=== PATIENT | female | born 1960 | race Caucasian/White ===

== ENCOUNTER 2016-10-14 04:43 | Emergency (ER) | payer MEDICARE ==
[~2016-10-14] VITALS: Ht 157.5 cm; Wt 48.2 kg
[~2016-10-14 04:43] MED LIST: ACCOLATE 220 MG/1 TA PO; ACETAMINOPHEN W1 TA6 PO; ALPRAZOLAM PO; ALPRAZOLAM0.25 MG PO; ANTIBIOTIC; ANTIVERT 25MG25 MG PO; ANUCORT HC25 M1 RC; ASTELIN137 MCG/AC NS; ATARAX 25MG25 MG/TAB PO; ATIVAN 0.50.5 MG/TAB PO; ATIVAN 1MG T1 MG/TAB PO; ATOXIMETIN-B1 CAP PO; ATROVENT INHALE14 GM IH; BENADRYL25 M1 PO; CATAPRES 0.1MG0.1 MG PO; CEPHALEXIN500 M1 PO; CEPHULAC10 GM/15 M PO; CLEOCIN HCL300 MG PO; COMPAZINE 5MG TA5 MG PO; CRESTOR20 MG PO; DAZIDOX10 MG PO; DESYREL 50MG50 MG PO; DEXTROMETHORPHA PO; DILAUDID 2MG TAB2 MG PO; DILAUDID 4MG TAB4 MG PO; DITROPAN XL10 MG PO; DOXYCYCLINE 10100 MG PO; DULCOLAX5 MG PO; FENTANYL 50MCG TD; FLEXERIL 1010 MG/TAB PO; FLONASE0.05 MG/AC NS; HABITROL21 MG/24 H TD; IBUPROFEN PO; IRON90 MG PO; LEUKINE; LEXAPRO20 MG PO; LIDODERM5% TP; LORTAB 10/500 51 TAB; LORTAB 5/500 501 TAB PO; LORTAB 7.5/5001 TAB PO; LOTRIMIN15 GM TP; LOTRISONE CREAM15 GM TP; METHADONE H5 MG/5 M1 PO; MINERAL OIL TP; MIRALAX 17GM PK1 PKT PO; MIRALAX PA17 GM/Dose PO; MIRALAX17 GM/DOSE PO; MOBIC 7.5MG7.5 MG PO; MOBIC15 MG PO; MS CONTIN15 MG PO; MS CONTIN30 MG PO; MULTIVITAMIN FO1 CAP PO; MYCOSTATIN100000 U/G TP; NAUSEA MED PO; NEURONTIN300 MG PO; NEXIUM 20MG CAP20 MG PO; NEXIUM 20MG20 MG PO; NEXIUM 40MG40 MG PO; NEXIUM10 MG/Pack PO; NEXIUM40 MG PO; NIZORAL CREAM15 GM TP; NO HOME MEDICATIONS; NORCO 325 MG-51 TAB PO; NORCO 325 MG-7.1 TAB PO; NYSTATIN POWDER30 GM TOP; OMEPRAZOLE MAGN20 MG PO; PERCOCET 325 MG1 TA2 PO; PERCOCET 325 MG1 TAB PO; PHENERGAN 25 TA25 MG; PHENERGAN 25 TA25 MG PO; POLYETHYLENE GL1 OI1; PREDNISONE20 MG PO; PREMARIN 0.60.625 M1 PO; PREVACID30 MG PO; PRILOSEC 20MG20 MG PO; PRILOSEC20 MG PO; PROAIR HFA0.09 MG/AC IH; PYRIDIUM200 M1 PO; RESTORIL 1515 MG/CAP PO; RESTORIL15 MG PO; ROXICODONE15 MG PO; RT SPIRIVA18 MCG IH; SEROQUEL50 MG PO; SILVADENE CREAM1 TU TP; THEO-24300 MG PO; TRIAMC 0.1 454 TOP; ULTRAM 50MG TAB50 MG PO; ULTRAM50 MG PO; VALIUM 10MG10 MG/TAB PO; VALIUM 2MG T2 MG/TAB PO; VALIUM 5MG T5 MG/TAB PO; VENTOLIN0.09 MG IH; VICODIN 5/5001 UDTAB PO; XANAX .25M0.25 MG/TA PO; XANAX 0.5MG0.5 MG PO; XANAX0.25 MG PO; ZITHROMAX Z PA250 MG PO; ZOFRAN 4MG T4 MG/TAB PO; ZOFRAN8 MG PO; [UNRECOGNIZED DRUG - CODE] PO; [UNRECOGNIZED DRUG - OTHER] PO; proair
[2016-10-14 05:08] VITALS: BP 102/68; TEMP 97.7
[2016-10-14] MEDS ORDERED: FENTANYL 25 MCG TD (05:13)
[2016-10-14] MEDS ORDERED: FLEXERIL5 MG PO (05:14)
[2016-10-14] MEDS ORDERED: LYRICA 50MG CAP50 MG PO (05:14)
[2016-10-14 06:35] VITALS: PULSE 85
== END 2016-10-14 07:18 | disposition home or self-care (01) ==
LOC: COL.ER 04:43 → EDBD 05:16 → COL.ER 07:18
DX: K94.19 Other complications of enterostomy (principal); G89.29 Other chronic pain; Z85.038 Personal history of other malignant neoplasm of large intestine

== ENCOUNTER 2016-10-30 03:39 | Emergency (ER) | payer MEDICARE ==
[~2016-10-30] VITALS: Ht 160 cm; Wt 47.7 kg
[~2016-10-30 03:39] MED LIST changes: +FENTANYL 25 MCG TD; +FLEXERIL5 MG PO; +LYRICA 50MG CAP50 MG PO
[2016-10-30 03:44] VITALS: TEMP 97.8
[2016-10-30] MEDS ORDERED: CLEOCIN HC150 MG/CAP PO (04:13)
[2016-10-30 04:35] VITALS: BP 147/82; PULSE 84
== END 2016-10-30 04:37 | disposition home or self-care (01) ==
LOC: COL.ER 03:39 → EDBD 03:54 → COL.ER 04:37
DX: K08.89 Other specified disorders of teeth and supporting structures (principal); Z43.3 Encounter for attention to colostomy; Z46.59 Encounter for fitting and adjustment of other gastrointestinal appliance and device; F17.210 Nicotine dependence, cigarettes, uncomplicated

== ENCOUNTER 2016-11-05 14:37 | Emergency (ER) | payer MEDICARE ==
[~2016-11-05] VITALS: Ht 162.6 cm; Wt 48.2 kg
[~2016-11-05 14:37] MED LIST changes: +CLEOCIN HC150 MG/CAP PO
[2016-11-05 16:05] VITALS: BP 117/72; PULSE 85; TEMP 97
== END 2016-11-05 16:10 | disposition home or self-care (01) ==
LOC: COL.ER 14:37 → EDBD 14:48 → COL.ER 14:48
DX: J10.1 Influenza due to other identified influenza virus with other respiratory manifestations (principal); F17.210 Nicotine dependence, cigarettes, uncomplicated

== ENCOUNTER 2016-11-23 22:02 | Emergency (ER) | payer MEDICARE ==
[~2016-11-23] VITALS: Ht 157.5 cm; Wt 49.1 kg
[2016-11-23 22:05] VITALS: BP 125/73; PULSE 92; TEMP 97.9
== END 2016-11-23 23:24 | disposition home or self-care (01) ==
LOC: COL.ER 22:02 → EDBD 22:13 → COL.ER 22:13
DX: Z43.2 Encounter for attention to ileostomy (principal); R10.84 Generalized abdominal pain; R11.2 Nausea with vomiting, unspecified

== ENCOUNTER 2016-12-28 14:03 | Emergency (ER) | payer MEDICARE ==
[~2016-12-28] VITALS: Ht 157.5 cm; Wt 50.5 kg
[2016-12-28 14:11] VITALS: TEMP 98.5
[2016-12-28 15:53] LABS: ADJUSTED CALCIUM 9.2 mg/dL (8.4-10.2); ALBUMIN 4.2 gm/dL (3.5-5.0); BILIRUBIN,TOTAL 1.1 mg/dL (0.0-1.0); CALCIUM 9.4 mg/dL (8.4-10.2); CREATININE, serum 0.86 mg/dL (0.52-1.25); MAGNESIUM 2.3 mg/dL (1.6-2.3); POTASSIUM 4.8 mmol/L (3.4-5.0); TOTAL PROTEIN 7.2 gm/dL (6.4-8.2)
[2016-12-28 16:04] LABS: BASO # 0.1 (0.0-0.2); BASO % 0.7 % (0.0-2.0); EOS # 0.3 (0.0-0.7); EOS % 3.6 % (0-4.0); GRAN # 3.1 (1.4-6.5); GRAN % 44.6 % (42.2-75.2); HEMATOCRIT 41.3 % (37.0-47.0); HEMOGLOBIN 14.2 g/dl (12.5-16.0); LYMPH # 3.1 (1.2-3.4); LYMPH % 44.9 % (20.0-51.0); MEAN CELL VOLUME 96 fl (80.0-100.0); MEAN CORPUSCULAR HEMOGLOBIN 33 pg (27.0-31.0); MEAN CORPUSCULAR HGB CONC 34 g/dl (33.0-37.0); MEAN PLATELET VOLUME 10.9 fl (7.4-10.4); MONO # 0.4 (0.1-0.6); MONO % 5.9 % (1.7-9.3); PLATELET COUNT 155 K/mm3 (130-400); RED BLOOD COUNT 4.31 M/mm3 (4.10-5.30); REDCELL DISTRIBUTION WIDTH-CV 12.4 % (11.5-14.5); WHITE BLOOD COUNT 6.9 K/mm3 (4.8-10.8)
[2016-12-28 17:27] VITALS: BP 104/62; PULSE 71
== END 2016-12-28 17:30 | disposition home or self-care (01) ==
LOC: COL.ER 14:03 → EDBD 14:17 → COL.ER 14:17
PROVIDERS: Emergency Medicine
DX: E86.0 Dehydration (principal); Z43.2 Encounter for attention to ileostomy
CPT/HCPCS: J7030

== ENCOUNTER 2017-01-05 03:51 | Emergency (ER) | payer MEDICARE ==
[~2017-01-05] VITALS: Ht 157.5 cm; Wt 50.0 kg
[2017-01-05 03:57] VITALS: TEMP 97.9
[2017-01-05 05:01] VITALS: BP 131/64; PULSE 94
== END 2017-01-05 05:01 | disposition home or self-care (01) ==
LOC: COL.ER 03:51 → EDBD 04:03 → COL.ER 04:03
DX: Z43.2 Encounter for attention to ileostomy (principal); L24.89 Irritant contact dermatitis due to other agents

== ENCOUNTER 2017-01-12 03:53 | Emergency (ER) | payer MEDICARE ==
[~2017-01-12] VITALS: Ht 157.5 cm; Wt 50.0 kg
[2017-01-12 03:59] VITALS: BP 118/62; PULSE 96; TEMP 97.7
[2017-01-12 05:57] LABS: BASO # 0.1 (0.0-0.2); BASO % 0.8 % (0.0-2.0); EOS # 0.3 (0.0-0.7); EOS % 4.5 % (0-4.0); GRAN # 3.1 (1.4-6.5); GRAN % 47.4 % (42.2-75.2); HEMOGLOBIN 12.7 g/dl (12.5-16.0); LYMPH # 2.6 (1.2-3.4); LYMPH % 38.9 % (20.0-51.0); MEAN CELL VOLUME 97 fl (80.0-100.0); MEAN CORPUSCULAR HEMOGLOBIN 33 pg (27.0-31.0); MEAN CORPUSCULAR HGB CONC 33 g/dl (33.0-37.0); MEAN PLATELET VOLUME 11.3 fl (7.4-10.4); MONO # 0.5 (0.1-0.6); MONO % 7.9 % (1.7-9.3); PLATELET COUNT 148 K/mm3 (130-400); REDCELL DISTRIBUTION WIDTH-CV 12.9 % (11.5-14.5); WHITE BLOOD COUNT 6.6 K/mm3 (4.8-10.8)
[2017-01-12 05:59] LABS: ANION GAP 8 mmol/L (7-16); BLOOD UREA NITROGEN 21 mg/dL (7-17); C-REACTIVE PROTEIN < 0.5 mg/dL (0.0-0.9); CALCIUM 9.4 mg/dL (8.4-10.2); CARBON DIOXIDE 29 mmol/L (22-30); CHLORIDE 102 mmol/L (98-107); CREATININE, serum 0.85 mg/dL (0.52-1.25); GLUCOSE 106 mg/dL (74-106); POTASSIUM 4.6 mmol/L (3.4-5.0); SODIUM 139 mmol/L (137-145)
[2017-01-12] MEDS ORDERED: LEVEMIR SQ (06:10)
== END 2017-01-12 07:02 | disposition home or self-care (01) ==
LOC: COL.ER 03:53 → EDBD 04:06 → COL.ER 07:02
PROVIDERS: Emergency Medicine
DX: Z43.2 Encounter for attention to ileostomy (principal); L24.89 Irritant contact dermatitis due to other agents; Z85.038 Personal history of other malignant neoplasm of large intestine

== ENCOUNTER 2017-01-17 23:03 | Emergency (ER) | payer MEDICARE ==
[~2017-01-17] VITALS: Ht 157.5 cm; Wt 50.5 kg
[~2017-01-17 23:03] MED LIST changes: +LEVEMIR SQ
[2017-01-17 23:07] VITALS: BP 113/67; TEMP 97.5
[2017-01-18 00:22] VITALS: PULSE 89
== END 2017-01-18 00:24 | disposition home or self-care (01) ==
LOC: COL.ER 23:03 → EDBD 23:12 → COL.ER 23:12
DX: Z43.3 Encounter for attention to colostomy (principal); B37.2 Candidiasis of skin and nail; G89.29 Other chronic pain; Z91.19 Patient's noncompliance with other medical treatment and regimen

== ENCOUNTER 2017-01-24 10:24 | Emergency (ER) | payer MEDICARE ==
[~2017-01-24] VITALS: Ht 157.5 cm; Wt 58.2 kg
[2017-01-24 10:36] VITALS: BP 114/71; PULSE 107; TEMP 98.6
== END 2017-01-24 11:21 | disposition home or self-care (01) ==
LOC: COL.ER 10:24 → EDBD 10:47 → COL.ER 10:47
DX: K08.89 Other specified disorders of teeth and supporting structures (principal); F17.210 Nicotine dependence, cigarettes, uncomplicated

== ENCOUNTER 2017-01-28 18:19 | Emergency (ER) | payer MEDICARE ==
[~2017-01-28] VITALS: Ht 167.6 cm; Wt 63.6 kg
[2017-01-28 18:27] VITALS: TEMP 97.5
[2017-01-28] MEDS ORDERED: NORCO 325 MG-51 TAB PO (18:34)
[2017-01-28 19:01] LABS: BASO # 0.1 (0.0-0.2); BASO % 0.7 % (0.0-2.0); EOS # 0.4 (0.0-0.7); EOS % 5.6 % (0-4.0); GRAN % 40.3 % (42.2-75.2); HEMATOCRIT 36.9 % (37.0-47.0); HEMOGLOBIN 12.6 g/dl (12.5-16.0); LYMPH # 3.4 (1.2-3.4); LYMPH % 45.6 % (20.0-51.0); MEAN CELL VOLUME 97 fl (80.0-100.0); MEAN CORPUSCULAR HEMOGLOBIN 33 pg (27.0-31.0); MEAN CORPUSCULAR HGB CONC 34 g/dl (33.0-37.0); MEAN PLATELET VOLUME 10.8 fl (7.4-10.4); MONO # 0.5 (0.1-0.6); MONO % 6.9 % (1.7-9.3); PLATELET COUNT 159 K/mm3 (130-400); RED BLOOD COUNT 3.81 M/mm3 (4.10-5.30); REDCELL DISTRIBUTION WIDTH-CV 12.5 % (11.5-14.5); WHITE BLOOD COUNT 7.5 K/mm3 (4.8-10.8)
[2017-01-28 19:08] LABS: INR 0.9 (0.8-3.0); PROTHROMBIN TIME 10.1 SECONDS (9.7-12.8)
[2017-01-28 19:12] LABS: PH 5 (5-8); SQUAMOUS EPITHELIAL 0-2 /hpf; URINE APPEARANCE Clear; URINE BACTERIA None Seen /hpf; URINE BILIRUBIN Negative (NEGATIVE); URINE BLOOD Negative (NEGATIVE); URINE COLOR Yellow; URINE GLUCOSE Negative (NEGATIVE); URINE KETONE Trace (NEGATIVE); URINE UROBILINOGEN Negative (NEGATIVE); URINE WBC 0-2 /hpf
[2017-01-28 19:15] LABS: ALANINE AMINOTRANSFERASE 30 U/L (9-52); ALBUMIN 3.7 gm/dL (3.5-5.0); ALKALINE PHOSPHATASE 113 U/L (50-136); ANION GAP 9 mmol/L (7-16); BILIRUBIN,TOTAL 0.6 mg/dL (0.0-1.0); BLOOD UREA NITROGEN 19 mg/dL (7-17); C-REACTIVE PROTEIN < 0.5 mg/dL (0.0-0.9); CALCIUM 8.8 mg/dL (8.4-10.2); CARBON DIOXIDE 27 mmol/L (22-30); CHLORIDE 105 mmol/L (98-107); CREATININE, serum 0.94 mg/dL (0.52-1.25); GLUCOSE 97 mg/dL (74-106); SODIUM 141 mmol/L (137-145); TOTAL PROTEIN 6.3 gm/dL (6.4-8.2)
[2017-01-28 19:19] LABS: AMPHETAMINE URINE NEGATIVE; BARBITURATES URINE NEGATIVE; BENZODIAZEPINES URINE POSITIVE; BUPRENORPHINE URINE NEGATIVE; METHADONE URINE NEGATIVE; OPIATES URINE POSITIVE; OXYCODONE URINE NEGATIVE; PHENCYCLIDINE URINE NEGATIVE; PROPOXYPHENE URINE NEGATIVE; THC CANNABINOIDS URINE NEGATIVE
[2017-01-28 22:20] VITALS: BP 118/78; PULSE 78
== END 2017-01-29 03:09 | disposition home or self-care (01) ==
LOC: COL.ER 18:19 → EDBD 18:21 → COL.ER 01-29 03:09
PROVIDERS: Family Medicine
DX: T40.2X1A Poisoning by other opioids, accidental (unintentional), initial encounter (principal); R40.0 Somnolence; F11.920 Opioid use, unspecified with intoxication, uncomplicated; Z93.3 Colostomy status
CPT/HCPCS: J2310

== ENCOUNTER 2017-02-04 08:54 | Emergency (ER) | payer MEDICARE ==
[~2017-02-04] VITALS: Ht 157.5 cm; Wt 63.6 kg
[2017-02-04 08:59] VITALS: BP 160/82; PULSE 84; TEMP 98.2
[2017-02-04] MEDS ORDERED: PERCOCET 325 MG1 TA2 PO (09:04)
[2017-02-04] MEDS ORDERED: FLEXERIL 1010 MG/TAB PO (09:06)
[2017-02-04] MEDS ORDERED: ZOFRAN ODT4 MG PO (09:07)
[2017-02-04] MEDS ORDERED: MOBIC15 MG PO (09:08)
== END 2017-02-04 11:30 | disposition home or self-care (01) ==
LOC: COL.ER 08:54 → EDBD 09:10 → COL.ER 09:10
DX: Z43.2 Encounter for attention to ileostomy (principal); Z46.89 Encounter for fitting and adjustment of other specified devices

== ENCOUNTER 2017-02-04 21:15 | Emergency (ER) | payer MEDICARE ==
[~2017-02-04] VITALS: Ht 157.5 cm; Wt 59.1 kg
[~2017-02-04 21:15] MED LIST changes: +ZOFRAN ODT4 MG PO
[2017-02-04 21:19] VITALS: BP 133/77; PULSE 95; TEMP 98.4
== END 2017-02-04 23:42 | disposition home or self-care (01) ==
LOC: COL.ER 21:15 → EDBD 21:23 → COL.ER 23:42
DX: Z43.3 Encounter for attention to colostomy (principal); Z46.89 Encounter for fitting and adjustment of other specified devices; J44.9 Chronic obstructive pulmonary disease, unspecified; F41.9 Anxiety disorder, unspecified; Z90.5 Acquired absence of kidney; F17.210 Nicotine dependence, cigarettes, uncomplicated

== ENCOUNTER 2017-02-06 00:15 | Emergency (ER) | payer MEDICARE ==
[~2017-02-06] VITALS: Ht 162.6 cm; Wt 81.8 kg
[2017-02-06 00:19] VITALS: TEMP 97.7
[2017-02-06 00:54] LABS: BASO # 0.1 (0.0-0.2); BASO % 0.8 % (0.0-2.0); EOS # 0.4 (0.0-0.7); EOS % 5.2 % (0-4.0); GRAN # 3.3 (1.4-6.5); GRAN % 44.7 % (42.2-75.2); LYMPH % 40.1 % (20.0-51.0); MEAN CELL VOLUME 99 fl (80.0-100.0); MEAN CORPUSCULAR HGB CONC 33 g/dl (33.0-37.0); MEAN PLATELET VOLUME 10.7 fl (7.4-10.4); MONO # 0.7 (0.1-0.6); MONO % 8.7 % (1.7-9.3); PLATELET COUNT 134 K/mm3 (130-400); RED BLOOD COUNT 3.37 M/mm3 (4.10-5.30); REDCELL DISTRIBUTION WIDTH-CV 12.4 % (11.5-14.5); WHITE BLOOD COUNT 7.4 K/mm3 (4.8-10.8)
[2017-02-06 00:55] LABS: HEMATOCRIT 33.4 % (37.0-47.0); MEAN CORPUSCULAR HEMOGLOBIN 33 pg (27.0-31.0)
[2017-02-06 01:05] LABS: ADJUSTED CALCIUM 8.9 mg/dL (8.4-10.2); ALANINE AMINOTRANSFERASE 25 U/L (9-52); ALBUMIN 3.2 gm/dL (3.5-5.0); ALKALINE PHOSPHATASE 92 U/L (50-136); ANION GAP 7 mmol/L (7-16); BILIRUBIN,TOTAL 0.5 mg/dL (0.0-1.0); BLOOD UREA NITROGEN 20 mg/dL (7-17); CALCIUM 8.3 mg/dL (8.4-10.2); CARBON DIOXIDE 29 mmol/L (22-30); CHLORIDE 106 mmol/L (98-107); CREATININE, serum 0.97 mg/dL (0.52-1.25); GLUCOSE 88 mg/dL (74-106); LIPASE 33 U/L (23-300); POTASSIUM 4.3 mmol/L (3.4-5.0); SODIUM 142 mmol/L (137-145); TOTAL PROTEIN 5.6 gm/dL (6.4-8.2)
[2017-02-06 01:07] LABS: ACETAMINOPHEN < 10 ug/mL (10-30); SALICYLATE < 1.0 mg/dL
[2017-02-06 01:33] LABS: AMPHETAMINE URINE NEGATIVE; BARBITURATES URINE NEGATIVE; BENZODIAZEPINES URINE POSITIVE; BUPRENORPHINE URINE NEGATIVE; METHADONE URINE NEGATIVE; OPIATES URINE NEGATIVE; OXYCODONE URINE POSITIVE; PH 5 (5-8); PHENCYCLIDINE URINE NEGATIVE; PROPOXYPHENE URINE NEGATIVE; SQUAMOUS EPITHELIAL 0-2 /hpf; THC CANNABINOIDS URINE NEGATIVE; URINE APPEARANCE Clear; URINE BACTERIA None Seen /hpf; URINE BILIRUBIN Negative (NEGATIVE); URINE BLOOD Negative (NEGATIVE); URINE COLOR Yellow; URINE GLUCOSE Negative (NEGATIVE); URINE KETONE Negative (NEGATIVE); URINE RBC 0-2 /hpf; URINE UROBILINOGEN Negative (NEGATIVE); URINE WBC 0-2 /hpf
[2017-02-06 06:32] VITALS: BP 144/97; PULSE 72
== END 2017-02-06 06:34 | disposition home or self-care (01) ==
LOC: COL.ER 00:15 → EDBD 00:19 → COL.ER 06:34
PROVIDERS: Physician Assistant
DX: T40.2X1A Poisoning by other opioids, accidental (unintentional), initial encounter (principal); R41.82 Altered mental status, unspecified; Y92.099 Unspecified place in other non-institutional residence as the place of occurrence of the external cause; G89.29 Other chronic pain; Z85.038 Personal history of other malignant neoplasm of large intestine; Z43.2 Encounter for attention to ileostomy; Z46.89 Encounter for fitting and adjustment of other specified devices; Z91.19 Patient's noncompliance with other medical treatment and regimen
CPT/HCPCS: J2310; J7030

== ENCOUNTER 2017-02-15 16:38 | Emergency (ER) | payer MEDICARE ==
[~2017-02-15] VITALS: Ht 157.5 cm; Wt 63.6 kg
[2017-02-15 16:51] VITALS: BP 101/64; PULSE 91; TEMP 97.9
== END 2017-02-15 18:02 | disposition home or self-care (01) ==
LOC: COL.ER 16:38 → EDBD 16:49 → COL.ER 16:49
DX: Z43.3 Encounter for attention to colostomy (principal); J44.9 Chronic obstructive pulmonary disease, unspecified; F41.9 Anxiety disorder, unspecified

== ENCOUNTER → 2017-02-16 | Outpatient (REF) ==
[~2017-02-16] MED LIST changes: +LYRICA 150MG C150 MG PO; +VISTARIL 2525 MG/CAP PO
== END ==
LOC: EDBD 18:53 → COL.LAB 18:53
DX: Z01.89 Encounter for other specified special examinations (principal)

== ENCOUNTER 2017-02-27 13:23 | Emergency (ER) | payer MEDICARE ==
[~2017-02-27] VITALS: Ht 157.5 cm; Wt 56.8 kg
[~2017-02-27 13:23] MED LIST changes: -LYRICA 150MG C150 MG PO; -VISTARIL 2525 MG/CAP PO
[2017-02-27 13:34] VITALS: BP 125/85; TEMP 97.7
[2017-02-27 14:01] VITALS: PULSE 87
== END 2017-02-27 14:15 | disposition home or self-care (01) ==
LOC: COL.ER 13:23 → EDBD 13:27 → COL.ER 14:15
DX: J44.9 Chronic obstructive pulmonary disease, unspecified (principal); Z43.2 Encounter for attention to ileostomy; K21.9 Gastro-esophageal reflux disease without esophagitis; M19.90 Unspecified osteoarthritis, unspecified site; F41.9 Anxiety disorder, unspecified; G89.29 Other chronic pain; F17.210 Nicotine dependence, cigarettes, uncomplicated; F12.99 Cannabis use, unspecified with unspecified cannabis-induced disorder; Z15.09 Genetic susceptibility to other malignant neoplasm; Z93.2 Ileostomy status; Z98.51 Tubal ligation status; Z90.710 Acquired absence of both cervix and uterus; Z90.49 Acquired absence of other specified parts of digestive tract; Z90.5 Acquired absence of kidney; Z90.6 Acquired absence of other parts of urinary tract; Z85.038 Personal history of other malignant neoplasm of large intestine

== ENCOUNTER 2017-03-01 03:33 | Emergency (ER) | payer MEDICARE ==
[~2017-03-01] VITALS: Ht 157.5 cm; Wt 59.1 kg
[2017-03-01 03:36] VITALS: TEMP 98.9
[2017-03-01 04:18] LABS: COLLECTION METHOD CLEAN CATCH
[2017-03-01 04:23] LABS: MUCOUS Present /lpf; PH 5 (5-8); SQUAMOUS EPITHELIAL 0-2 /hpf; URINE APPEARANCE Clear; URINE BACTERIA None Seen /hpf; URINE BILIRUBIN Negative (NEGATIVE); URINE BLOOD Negative (NEGATIVE); URINE COLOR Yellow; URINE GLUCOSE Negative (NEGATIVE); URINE KETONE Negative (NEGATIVE); URINE LEUKOCYTE ESTERASE Negative (NEGATIVE); URINE PROTEIN(semi-quant) Negative (NEGATIVE); URINE RBC 0-2 /hpf; URINE UROBILINOGEN Negative (NEGATIVE); URINE WBC 0-2 /hpf
[2017-03-01 05:04] VITALS: BP 119/57; PULSE 89
== END 2017-03-01 05:05 | disposition home or self-care (01) ==
LOC: COL.ER 03:33 → EDBD 03:42 → COL.ER 05:05
PROVIDERS: Emergency Medicine
DX: K94.09 Other complications of colostomy (principal); J44.9 Chronic obstructive pulmonary disease, unspecified; K21.9 Gastro-esophageal reflux disease without esophagitis; M19.90 Unspecified osteoarthritis, unspecified site; F41.9 Anxiety disorder, unspecified; F17.210 Nicotine dependence, cigarettes, uncomplicated; Z85.038 Personal history of other malignant neoplasm of large intestine; Z90.710 Acquired absence of both cervix and uterus; Z98.51 Tubal ligation status; Z93.3 Colostomy status; Z93.2 Ileostomy status

== ENCOUNTER 2017-03-06 12:19 | Emergency (ER) | payer MEDICARE ==
[~2017-03-06] VITALS: Ht 157.5 cm; Wt 59.1 kg
[2017-03-06 12:21] VITALS: BP 118/84; TEMP 98.3
[2017-03-06 13:19] VITALS: PULSE 98
== END 2017-03-06 13:20 | disposition home or self-care (01) ==
LOC: COL.ER 12:19 → EDBD 12:29 → COL.ER 12:29
DX: Z43.2 Encounter for attention to ileostomy (principal); Z46.89 Encounter for fitting and adjustment of other specified devices; R21 Rash and other nonspecific skin eruption; Z85.038 Personal history of other malignant neoplasm of large intestine

== ENCOUNTER 2017-03-08 20:24 | Emergency (ER) | payer MEDICARE ==
[~2017-03-08] VITALS: Ht 160 cm; Wt 59.1 kg
[2017-03-08 20:31] VITALS: BP 108/73; PULSE 110; TEMP 98.1
== END 2017-03-08 21:49 | disposition home or self-care (01) ==
LOC: COL.ER 20:24 → EDBD 20:34 → COL.ER 20:34
DX: Z43.2 Encounter for attention to ileostomy (principal); Z46.89 Encounter for fitting and adjustment of other specified devices; Z85.038 Personal history of other malignant neoplasm of large intestine; G89.29 Other chronic pain

== ENCOUNTER 2017-03-29 12:36 | Emergency (ER) | payer MEDICARE ==
[~2017-03-29] VITALS: Ht 157.5 cm; Wt 62.3 kg
[2017-03-29 12:39] VITALS: TEMP 97.8
[2017-03-29] MEDS ORDERED: VISTARIL 2525 MG/CAP PO (13:30)
[2017-03-29 13:40] VITALS: BP 113/80; PULSE 84
== END 2017-03-29 13:41 | disposition home or self-care (01) ==
LOC: COL.ER 12:36 → EDBD 12:43 → COL.ER 13:41
DX: F41.9 Anxiety disorder, unspecified (principal); T42.4X6A Underdosing of benzodiazepines, initial encounter; Z91.138 Patient's unintentional underdosing of medication regimen for other reason; Z93.2 Ileostomy status; Z85.038 Personal history of other malignant neoplasm of large intestine

== ENCOUNTER 2017-03-31 05:55 | Emergency (ER) | payer MEDICARE ==
[~2017-03-31] VITALS: Ht 157.5 cm; Wt 61.4 kg
[~2017-03-31 05:55] MED LIST changes: +VISTARIL 2525 MG/CAP PO
[2017-03-31 05:58] VITALS: BP 135/71; PULSE 85; TEMP 97.8
== END 2017-03-31 06:37 | disposition home or self-care (01) ==
LOC: COL.ER 05:55 → EDBD 06:12 → COL.ER 06:37
DX: F41.9 Anxiety disorder, unspecified (principal); K21.9 Gastro-esophageal reflux disease without esophagitis; I10 Essential (primary) hypertension; F32.9 Major depressive disorder, single episode, unspecified; F17.210 Nicotine dependence, cigarettes, uncomplicated; Z90.710 Acquired absence of both cervix and uterus; Z98.51 Tubal ligation status; Z93.3 Colostomy status; Z90.5 Acquired absence of kidney; Z85.038 Personal history of other malignant neoplasm of large intestine; Z92.21 Personal history of antineoplastic chemotherapy

== ENCOUNTER 2017-04-02 10:43 | Day surgery (SDC) | payer MEDICARE ==
[2017-04-02] VITALS (7 sets, daily range): BP systolic 100–121; BP diastolic 62–79; PULSE 62–94; TEMP 97.5–97.6
[~2017-04-02] VITALS: Ht 157.5 cm; Wt 58.3 kg
[2017-04-03] MEDS ORDERED: ATIVAN 1MG T1 MG/TAB PO (05:19)
== END 2017-04-02 15:20 | disposition home or self-care (01) ==
LOC: SDCO 10:43 → EDBD 10:43 → SDCO 12:15
DX: Z12.11 Encounter for screening for malignant neoplasm of colon (principal); K21.0 Gastro-esophageal reflux disease with esophagitis; D64.9 Anemia, unspecified; F41.9 Anxiety disorder, unspecified; K94.13 Enterostomy malfunction; Z15.09 Genetic susceptibility to other malignant neoplasm; Z85.038 Personal history of other malignant neoplasm of large intestine; G43.909 Migraine, unspecified, not intractable, without status migrainosus; Z98.51 Tubal ligation status
CPT/HCPCS: J2704; J3010; J7030

== ENCOUNTER 2017-04-03 04:44 | Emergency (ER) | payer MEDICARE ==
[~2017-04-03] VITALS: Ht 160 cm; Wt 58.2 kg
[2017-04-03 04:50] VITALS: BP 117/70; PULSE 88; TEMP 97.7
[2017-04-03] MEDS ORDERED: ATIVAN 1MG T1 MG/TAB PO (05:19)
== END 2017-04-03 06:28 | disposition home or self-care (01) ==
LOC: COL.ER 04:44 → EDBD 04:59 → COL.ER 06:28
DX: F41.9 Anxiety disorder, unspecified (principal); K21.9 Gastro-esophageal reflux disease without esophagitis; F17.210 Nicotine dependence, cigarettes, uncomplicated; G89.29 Other chronic pain; M19.90 Unspecified osteoarthritis, unspecified site; J44.9 Chronic obstructive pulmonary disease, unspecified; Z43.3 Encounter for attention to colostomy; Z91.19 Patient's noncompliance with other medical treatment and regimen; Z85.038 Personal history of other malignant neoplasm of large intestine; Z92.21 Personal history of antineoplastic chemotherapy; Z87.01 Personal history of pneumonia (recurrent); Z90.710 Acquired absence of both cervix and uterus; Z98.51 Tubal ligation status; Z93.2 Ileostomy status; Z93.3 Colostomy status; Z98.890 Other specified postprocedural states

== ENCOUNTER 2017-04-03 15:24 | Emergency (ER) | payer MEDICARE ==
[~2017-04-03] VITALS: Ht 5.1 cm; Wt 58.2 kg
[2017-04-03 15:32] VITALS: BP 145/67; TEMP 98
[2017-04-03 16:30] VITALS: PULSE 88
== END 2017-04-03 16:30 | disposition home or self-care (01) ==
LOC: COL.ER 15:24 → EDBD 15:38 → COL.ER 16:30
DX: Z43.3 Encounter for attention to colostomy (principal); K21.9 Gastro-esophageal reflux disease without esophagitis; J44.9 Chronic obstructive pulmonary disease, unspecified; M19.90 Unspecified osteoarthritis, unspecified site; Z93.3 Colostomy status; F17.210 Nicotine dependence, cigarettes, uncomplicated; F41.9 Anxiety disorder, unspecified; G89.29 Other chronic pain; Z93.2 Ileostomy status; Z90.710 Acquired absence of both cervix and uterus; Z98.51 Tubal ligation status; Z85.038 Personal history of other malignant neoplasm of large intestine; Z92.21 Personal history of antineoplastic chemotherapy

== ENCOUNTER 2017-04-16 05:26 | Emergency (ER) | payer MEDICARE ==
[~2017-04-16] VITALS: Ht 160 cm; Wt 58.2 kg
[2017-04-16 05:28] VITALS: TEMP 97.7
[2017-04-16] MEDS ORDERED: PERCOCET 325 MG1 TA2 PO (05:34)
[2017-04-16] MEDS ORDERED: LYRICA 150MG C150 MG PO (05:34)
[2017-04-16] MEDS ORDERED: PRILOSEC 20MG20 MG PO (05:35)
[2017-04-16] MEDS ORDERED: ULTRAM 50MG TAB50 MG PO (06:23)
[2017-04-16] MEDS ORDERED: PHENERGAN 25 TA25 MG PO (06:23)
[2017-04-16 06:26] LABS: BASO % 0.3 % (0.0-2.0); EOS # 0.2 (0.0-0.7); GRAN # 4.8 (1.4-6.5); GRAN % 56.1 % (42.2-75.2); HEMATOCRIT 49.1 % (37.0-47.0); HEMOGLOBIN 16.8 g/dl (12.5-16.0); LYMPH % 35.3 % (20.0-51.0); MEAN CELL VOLUME 92 fl (80.0-100.0); MEAN CORPUSCULAR HEMOGLOBIN 31 pg (27.0-31.0); MEAN CORPUSCULAR HGB CONC 34 g/dl (33.0-37.0); MEAN PLATELET VOLUME 10.4 fl (7.4-10.4); MONO # 0.5 (0.1-0.6); MONO % 6.1 % (1.7-9.3); PLATELET COUNT 145 K/mm3 (130-400); RED BLOOD COUNT 5.35 M/mm3 (4.10-5.30); REDCELL DISTRIBUTION WIDTH-CV 12.2 % (11.5-14.5); WHITE BLOOD COUNT 8.6 K/mm3 (4.8-10.8)
[2017-04-16 06:36] LABS: ADJUSTED CALCIUM 9.2 mg/dL (8.4-10.2); ALBUMIN 4.7 gm/dL (3.5-5.0); BILIRUBIN,TOTAL 0.8 mg/dL (0.0-1.0); CALCIUM 9.8 mg/dL (8.4-10.2); CREATININE, serum 0.79 mg/dL (0.52-1.25); POTASSIUM 4.1 mmol/L (3.4-5.0)
[2017-04-16 08:20] VITALS: BP 122/86; PULSE 79
== END 2017-04-16 08:08 | disposition home or self-care (01) ==
LOC: COL.ER 05:26 → EDBD 05:37 → COL.ER 08:08
PROVIDERS: Emergency Medicine
DX: R10.13 Epigastric pain (principal); K21.9 Gastro-esophageal reflux disease without esophagitis; F41.9 Anxiety disorder, unspecified; Z87.891 Personal history of nicotine dependence; Z85.038 Personal history of other malignant neoplasm of large intestine; Z84.81 Family history of carrier of genetic disease; Z90.710 Acquired absence of both cervix and uterus; Z90.49 Acquired absence of other specified parts of digestive tract
CPT/HCPCS: C9113; J1170; J2405; J2550; J7030; Q9967

== ENCOUNTER 2017-04-17 10:31 | Emergency (ER) | payer MEDICARE ==
[~2017-04-17] VITALS: Ht 157.5 cm; Wt 58.2 kg
[~2017-04-17 10:31] MED LIST changes: +LYRICA 150MG C150 MG PO
[2017-04-17 10:40] VITALS: BP 149/79; TEMP 98.1
[2017-04-17 14:21] LABS: BASO # 0.1 (0.0-0.2); BASO % 0.5 % (0.0-2.0); EOS # 0.1 (0.0-0.7); EOS % 0.7 % (0-4.0); GRAN # 6.6 (1.4-6.5); GRAN % 67.1 % (42.2-75.2); HEMATOCRIT 46.9 % (37.0-47.0); LYMPH # 2.7 (1.2-3.4); LYMPH % 27.6 % (20.0-51.0); MEAN CELL VOLUME 94 fl (80.0-100.0); MEAN CORPUSCULAR HEMOGLOBIN 32 pg (27.0-31.0); MEAN CORPUSCULAR HGB CONC 34 g/dl (33.0-37.0); MEAN PLATELET VOLUME 10.2 fl (7.4-10.4); MONO # 0.4 (0.1-0.6); MONO % 3.6 % (1.7-9.3); PLATELET COUNT 207 K/mm3 (130-400); RED BLOOD COUNT 4.99 M/mm3 (4.10-5.30); REDCELL DISTRIBUTION WIDTH-CV 12.4 % (11.5-14.5); WHITE BLOOD COUNT 9.8 K/mm3 (4.8-10.8)
[2017-04-17 14:59] LABS: PH 5 (5-8); URINE APPEARANCE Clear; URINE BACTERIA None Seen /hpf; URINE BILIRUBIN Negative (NEGATIVE); URINE BLOOD Negative (NEGATIVE); URINE COLOR Yellow; URINE GLUCOSE Negative (NEGATIVE); URINE KETONE Negative (NEGATIVE); URINE RBC 0-2 /hpf; URINE UROBILINOGEN Negative (NEGATIVE)
[2017-04-17 15:08] LABS: ADJUSTED CALCIUM 8.8 mg/dL (8.4-10.2); ALBUMIN 3.7 gm/dL (3.5-5.0); BILIRUBIN,TOTAL 0.6 mg/dL (0.0-1.0); CALCIUM 8.6 mg/dL (8.4-10.2); CREATININE, serum 0.77 mg/dL (0.52-1.25); POTASSIUM 4.6 mmol/L (3.4-5.0); TOTAL PROTEIN 6.6 gm/dL (6.4-8.2)
[2017-04-17 15:39] VITALS: PULSE 72
== END 2017-04-17 15:39 | disposition home or self-care (01) ==
LOC: COL.ER 10:31 → EDBD 11:01 → COL.ER 11:01
PROVIDERS: Family Medicine
DX: G89.29 Other chronic pain (principal); R10.9 Unspecified abdominal pain; Z87.891 Personal history of nicotine dependence
CPT/HCPCS: J2405; J2765; J7030

== ENCOUNTER → 2017-04-19 | Outpatient (REF) | LOC: EDBD 06:29 → COL.LAB 06:29 | DX: Z01.89 Encounter for other specified special examinations (principal) ==

== ENCOUNTER 2017-04-20 09:27 | Emergency (ER) | payer MEDICARE ==
[~2017-04-20] VITALS: Ht 157.5 cm; Wt 58.2 kg
[2017-04-20 09:29] VITALS: BP 144/94; TEMP 98.1
[2017-04-20 09:53] LABS: BASO % 0.3 % (0.0-2.0); EOS # 0.1 (0.0-0.7); GRAN # 8.1 (1.4-6.5); GRAN % 66.6 % (42.2-75.2); HEMATOCRIT 49.1 % (37.0-47.0); HEMOGLOBIN 16.9 g/dl (12.5-16.0); LYMPH # 3.3 (1.2-3.4); MEAN CELL VOLUME 92 fl (80.0-100.0); MEAN CORPUSCULAR HEMOGLOBIN 32 pg (27.0-31.0); MEAN CORPUSCULAR HGB CONC 34 g/dl (33.0-37.0); MEAN PLATELET VOLUME 10.4 fl (7.4-10.4); MONO # 0.6 (0.1-0.6); MONO % 4.9 % (1.7-9.3); PLATELET COUNT 218 K/mm3 (130-400); RED BLOOD COUNT 5.36 M/mm3 (4.10-5.30); REDCELL DISTRIBUTION WIDTH-CV 12.2 % (11.5-14.5); WHITE BLOOD COUNT 12.1 K/mm3 (4.8-10.8)
[2017-04-20 10:05] LABS: ADJUSTED CALCIUM 9.2 mg/dL (8.4-10.2); ALBUMIN 4.6 gm/dL (3.5-5.0); BILIRUBIN,TOTAL 1.1 mg/dL (0.0-1.0); CALCIUM 9.7 mg/dL (8.4-10.2); CREATININE, serum 0.82 mg/dL (0.52-1.25); POTASSIUM 4.8 mmol/L (3.4-5.0)
[2017-04-20] MEDS ORDERED: PHENERGAN 25 TA25 MG PO (12:17)
[2017-04-20 12:44] VITALS: PULSE 72
== END 2017-04-20 12:47 | disposition home or self-care (01) ==
LOC: COL.ER 09:27 → EDBD 09:35 → COL.ER 12:47
PROVIDERS: Emergency Medicine
DX: R11.2 Nausea with vomiting, unspecified (principal); R10.816 Epigastric abdominal tenderness; R10.811 Right upper quadrant abdominal tenderness; Z93.2 Ileostomy status
CPT/HCPCS: J2405; J2550; J7030

== ENCOUNTER 2017-04-21 17:57 | Inpatient (IN) | payer MEDICARE ==
[~2017-04-21] VITALS: Ht 157.5 cm; Wt 58.6 kg
[2017-04-21 18:35] LABS: BASO % 0.6 % (0.0-2.0); EOS % 0.7 % (0-4.0); GRAN # 3.1 (1.4-6.5); GRAN % 57.9 % (42.2-75.2); HEMATOCRIT 45.6 % (37.0-47.0); HEMOGLOBIN 15.9 g/dl (12.5-16.0); LYMPH # 1.7 (1.2-3.4); LYMPH % 31.2 % (20.0-51.0); MEAN CELL VOLUME 91 fl (80.0-100.0); MEAN CORPUSCULAR HEMOGLOBIN 32 pg (27.0-31.0); MEAN CORPUSCULAR HGB CONC 35 g/dl (33.0-37.0); MEAN PLATELET VOLUME 10.3 fl (7.4-10.4); MONO # 0.5 (0.1-0.6); MONO % 9.4 % (1.7-9.3); PLATELET COUNT 175 K/mm3 (130-400); RED BLOOD COUNT 5.01 M/mm3 (4.10-5.30); REDCELL DISTRIBUTION WIDTH-CV 12.4 % (11.5-14.5); WHITE BLOOD COUNT 5.4 K/mm3 (4.8-10.8)
[2017-04-21 18:44] LABS: ADJUSTED CALCIUM 8.8 mg/dL (8.4-10.2); ALBUMIN 4.1 gm/dL (3.5-5.0); BILIRUBIN,TOTAL 1.7 mg/dL (0.0-1.0); CALCIUM 8.9 mg/dL (8.4-10.2); CREATININE, serum 0.77 mg/dL (0.52-1.25); POTASSIUM 3.8 mmol/L (3.4-5.0)
[2017-04-21 20:58] LABS: PH 5 (5-8); URINE APPEARANCE Clear; URINE BACTERIA None Seen /hpf; URINE BILIRUBIN Negative (NEGATIVE); URINE BLOOD Negative (NEGATIVE); URINE COLOR Yellow; URINE GLUCOSE Negative (NEGATIVE); URINE KETONE 1+ (NEGATIVE); URINE RBC 0-2 /hpf; URINE UROBILINOGEN Negative (NEGATIVE); URINE WBC 0-2 /hpf
[2017-04-21 20:59] VITALS: BP 151/72; PULSE 82; TEMP 97.8
[2017-04-21 23:54] VITALS: BP 124/74; PULSE 75; TEMP 98.7
[2017-04-22 03:54] VITALS: BP 138/86; PULSE 87; TEMP 98.1
[2017-04-22 08:34] VITALS: BP 135/82; PULSE 87; TEMP 98.2
[2017-04-22 10:59] VITALS: BP 134/69; PULSE 62; TEMP 98.2
[2017-04-22 15:20] VITALS: BP 135/82; PULSE 83; TEMP 97.9
[2017-04-22 19:53] VITALS: BP 135/76; PULSE 86; TEMP 98
[2017-04-22 23:08] VITALS: BP 137/83; PULSE 91; TEMP 97.7
[2017-04-23 02:47] VITALS: BP 154/82; PULSE 76; TEMP 98
[2017-04-23 06:18] LABS: ADD PATHOLOGY DIFF REVIEW NO
[2017-04-23 06:25] LABS: HEMATOCRIT 38.1 % (37.0-47.0); MEAN CELL VOLUME 91 fl (80.0-100.0); MEAN CORPUSCULAR HEMOGLOBIN 32 pg (27.0-31.0); MEAN CORPUSCULAR HGB CONC 35 g/dl (33.0-37.0); MEAN PLATELET VOLUME 10.7 fl (7.4-10.4); PLATELET COUNT 148 K/mm3 (130-400); RED BLOOD COUNT 4.19 M/mm3 (4.10-5.30); WHITE BLOOD COUNT 5.2 K/mm3 (4.8-10.8)
[2017-04-23 06:26] LABS: HEMOGLOBIN 13.3 g/dl (12.5-16.0)
[2017-04-23 06:34] LABS: CALCIUM 8.2 mg/dL (8.4-10.2); CREATININE, serum 0.66 mg/dL (0.52-1.25); POTASSIUM 3.7 mmol/L (3.4-5.0)
[2017-04-23 06:37] LABS: ANISOCYTOSIS 1+; BAND 5 % (0-10); EOSINOPHIL 3 % (0-4); METAMYELOCYTE 2 % (0-0); MYELOCYTE 1 % (0-0); NEUTROPHILS 60 % (42.0-75.2); TOTAL CELLS COUNTED 100
[2017-04-23 08:06] VITALS: BP 148/79; PULSE 82; TEMP 98.7
[2017-04-23 12:02] VITALS: BP 152/91; PULSE 78; TEMP 97.8
[2017-04-23 16:08] VITALS: BP 155/109; PULSE 89
== END 2017-04-23 18:00 | disposition left against medical advice (07) | DRG 390 ==
LOC: COL.ER 17:57 → MEDICAL 19:22 → EDBD 19:22 → MEDICAL 04-23 18:00
PROVIDERS: Family Medicine; Surgery
PROC: 0D9670Z Drainage of Stomach with Drainage Device, Via Natural or Artificial Opening (ICD-10-PCS; principal; 2017-04-21)
DX: K56.69 Other intestinal obstruction (principal); Z85.038 Personal history of other malignant neoplasm of large intestine; Z85.54 Personal history of malignant neoplasm of ureter; F17.210 Nicotine dependence, cigarettes, uncomplicated; F43.12 Post-traumatic stress disorder, chronic; G89.29 Other chronic pain; Z93.2 Ileostomy status
CPT/HCPCS: J2060; J2270; J2405; J2550; J3480; J7030; J7120; Q9967

== ENCOUNTER 2017-04-28 18:18 | Emergency (ER) | payer MEDICARE ==
[~2017-04-28] VITALS: Ht 160 cm; Wt 61.4 kg
[2017-04-28 18:25] VITALS: BP 124/76; TEMP 97.6
[2017-04-28] MEDS ORDERED: ATIVAN 1MG T1 MG/TAB PO (20:33)
[2017-04-28 21:12] VITALS: PULSE 88
== END 2017-04-28 21:12 | disposition home or self-care (01) ==
LOC: COL.ER 18:18
DX: F41.9 Anxiety disorder, unspecified (principal); K21.9 Gastro-esophageal reflux disease without esophagitis; F43.10 Post-traumatic stress disorder, unspecified; G89.29 Other chronic pain; Z85.038 Personal history of other malignant neoplasm of large intestine; Z90.710 Acquired absence of both cervix and uterus; Z90.5 Acquired absence of kidney; Z90.89 Acquired absence of other organs

== ENCOUNTER 2017-04-30 15:07 | Emergency (ER) | payer MEDICARE ==
[~2017-04-30] VITALS: Ht 157.5 cm; Wt 58.6 kg
[2017-04-30 15:10] VITALS: TEMP 98.4
[2017-04-30 16:26] VITALS: BP 155/68; PULSE 88
== END 2017-04-30 16:28 | disposition home or self-care (01) ==
LOC: COL.ER 15:07
DX: S00.83XA Contusion of other part of head, initial encounter (principal); W18.30XA Fall on same level, unspecified, initial encounter; W22.8XXA Striking against or struck by other objects, initial encounter; Y92.008 Other place in unspecified non-institutional (private) residence as the place of occurrence of the external cause; S60.420A Blister (nonthermal) of right index finger, initial encounter; K08.89 Other specified disorders of teeth and supporting structures; F17.200 Nicotine dependence, unspecified, uncomplicated

== ENCOUNTER 2017-05-03 21:27 | Emergency (ER) | payer MEDICARE ==
[~2017-05-03] VITALS: Ht 160 cm; Wt 59.1 kg
[2017-05-03 21:30] VITALS: BP 149/71; TEMP 98.3
[2017-05-03 22:18] VITALS: PULSE 95
== END 2017-05-03 22:21 | disposition home or self-care (01) ==
LOC: COL.ER 21:27
DX: M79.672 Pain in left foot (principal); M79.671 Pain in right foot; S90.822A Blister (nonthermal), left foot, initial encounter; S90.821A Blister (nonthermal), right foot, initial encounter; Z85.038 Personal history of other malignant neoplasm of large intestine; Z93.3 Colostomy status; X50.9XXA Other and unspecified overexertion or strenuous movements or postures, initial encounter

== ENCOUNTER 2017-05-10 03:50 | Emergency (ER) | payer MEDICARE ==
[~2017-05-10] VITALS: Ht 157.5 cm; Wt 58.2 kg
[2017-05-10 03:57] VITALS: BP 128/57; TEMP 97.7
[2017-05-10 04:27] VITALS: PULSE 86
== END 2017-05-10 04:28 | disposition home or self-care (01) ==
LOC: COL.ER 03:50
DX: F41.9 Anxiety disorder, unspecified (principal); G47.00 Insomnia, unspecified; F17.210 Nicotine dependence, cigarettes, uncomplicated; Z93.3 Colostomy status

== ENCOUNTER 2017-05-16 20:47 | Emergency (ER) | payer MEDICARE ==
[~2017-05-16] VITALS: Ht 157.5 cm; Wt 55.9 kg
[2017-05-16 20:50] VITALS: BP 135/76; PULSE 78; TEMP 97.7
== END 2017-05-17 00:04 | disposition home or self-care (01) ==
LOC: COL.ER 20:47
DX: M25.421 Effusion, right elbow (principal); M25.521 Pain in right elbow; M25.531 Pain in right wrist; S80.211A Abrasion, right knee, initial encounter; V18.0XXA Pedal cycle driver injured in noncollision transport accident in nontraffic accident, initial encounter; Y92.89 Other specified places as the place of occurrence of the external cause; G89.29 Other chronic pain; F11.19 Opioid abuse with unspecified opioid-induced disorder; Z79.891 Long term (current) use of opiate analgesic

== ENCOUNTER 2017-05-27 17:10 | Emergency (ER) | payer MEDICARE ==
[~2017-05-27] VITALS: Ht 157.5 cm; Wt 58.2 kg
[2017-05-27 17:20] VITALS: BP 140/84; PULSE 90; TEMP 97.8
[2017-05-27] MEDS ORDERED: ATARAX 25MG25 MG/TAB PO (17:46)
== END 2017-05-27 18:01 | disposition home or self-care (01) ==
LOC: COL.ER 17:10
DX: F41.9 Anxiety disorder, unspecified (principal); F32.9 Major depressive disorder, single episode, unspecified; G89.29 Other chronic pain; F17.210 Nicotine dependence, cigarettes, uncomplicated

== ENCOUNTER 2017-06-05 10:50 | Emergency (ER) | payer MEDICARE ==
[~2017-06-05] VITALS: Ht 157.5 cm; Wt 58.2 kg
[2017-06-05 10:57] VITALS: BP 156/70; PULSE 86; TEMP 97.9
[2017-06-05] MEDS ORDERED: ATIVAN 0.50.5 MG/TAB PO (11:43)
[2017-06-05] MEDS ORDERED: ATARAX 25MG25 MG/TAB PO (11:43)
== END 2017-06-05 12:34 | disposition home or self-care (01) ==
LOC: COL.ER 10:50
DX: F41.9 Anxiety disorder, unspecified (principal); F17.210 Nicotine dependence, cigarettes, uncomplicated; G89.29 Other chronic pain

== ENCOUNTER → 2017-06-21 | Outpatient (CLI) | payer MEDICARE ==
[2017-06-21 14:57] LABS: AMPHETAMINE URINE NEGATIVE; BARBITURATES URINE NEGATIVE; BENZODIAZEPINES URINE POSITIVE; BUPRENORPHINE URINE NEGATIVE; METHADONE URINE NEGATIVE; OPIATES URINE NEGATIVE; OXYCODONE URINE POSITIVE; PHENCYCLIDINE URINE NEGATIVE; PROPOXYPHENE URINE NEGATIVE; THC CANNABINOIDS URINE NEGATIVE
== END ==
LOC: COL.LAB 14:06
PROVIDERS: Family Medicine
DX: G89.29 Other chronic pain (principal)

== ENCOUNTER → 2017-06-27 | Emergency (ER) | payer MEDICARE ==
[~2017-06-27] VITALS: Ht 157.5 cm; Wt 58.2 kg
[2017-06-27 11:17] VITALS: BP 124/75; PULSE 90; TEMP 98.4
== END ==
LOC: COL.ER 11:04
DX: Z43.2 Encounter for attention to ileostomy (principal)

== ENCOUNTER 2017-07-01 19:01 | Emergency (ER) | payer MEDICARE ==
[~2017-07-01] VITALS: Ht 157.5 cm; Wt 58.2 kg
[2017-07-01 19:06] VITALS: BP 104/60; PULSE 91; TEMP 98
== END 2017-07-01 20:06 | disposition home or self-care (01) ==
LOC: COL.ER 19:01
DX: Z43.3 Encounter for attention to colostomy (principal); J44.9 Chronic obstructive pulmonary disease, unspecified; F41.9 Anxiety disorder, unspecified; K21.9 Gastro-esophageal reflux disease without esophagitis; G89.29 Other chronic pain; R10.84 Generalized abdominal pain; Z85.038 Personal history of other malignant neoplasm of large intestine; F17.210 Nicotine dependence, cigarettes, uncomplicated

== ENCOUNTER → 2017-07-02 | Emergency (ER) | payer MEDICARE ==
[~2017-07-02] VITALS: Ht 157.5 cm; Wt 58.2 kg
[2017-07-02 08:37] VITALS: BP 130/78; PULSE 80; TEMP 97
== END ==
LOC: COL.ER 08:33
DX: Z43.3 Encounter for attention to colostomy (principal); F17.210 Nicotine dependence, cigarettes, uncomplicated; G89.29 Other chronic pain; Z85.038 Personal history of other malignant neoplasm of large intestine; Z90.49 Acquired absence of other specified parts of digestive tract

== ENCOUNTER → 2017-07-14 | Outpatient (CLI) | payer MEDICARE ==
[2017-07-14 14:50] LABS: BASO # 0.1 (0.0-0.2); BASO % 0.7 % (0.0-2.0); EOS # 0.2 (0.0-0.7); GRAN # 4.3 (1.4-6.5); GRAN % 56.3 % (42.2-75.2); HEMATOCRIT 42.4 % (37.0-47.0); HEMOGLOBIN 14.8 g/dl (12.5-16.0); LYMPH # 2.7 (1.2-3.4); MEAN CELL VOLUME 91 fl (80.0-100.0); MEAN CORPUSCULAR HEMOGLOBIN 32 pg (27.0-31.0); MEAN CORPUSCULAR HGB CONC 35 g/dl (33.0-37.0); MEAN PLATELET VOLUME 10.7 fl (7.4-10.4); MONO # 0.4 (0.1-0.6); MONO % 4.7 % (1.7-9.3); PLATELET COUNT 182 K/mm3 (130-400); RED BLOOD COUNT 4.66 M/mm3 (4.10-5.30); REDCELL DISTRIBUTION WIDTH-CV 12.5 % (11.5-14.5); WHITE BLOOD COUNT 7.6 K/mm3 (4.8-10.8)
[2017-07-14 15:06] LABS: ADJUSTED CALCIUM 9.4 mg/dL (8.4-10.2); BILIRUBIN,TOTAL 0.5 mg/dL (0.0-1.0); CALCIUM 9.4 mg/dL (8.4-10.2); CREATININE, serum 0.83 mg/dL (0.52-1.25); POTASSIUM 4.4 mmol/L (3.4-5.0); TOTAL PROTEIN 7.3 gm/dL (6.4-8.2)
[2017-07-14 15:32] LABS: HIV 1/2 Antibodies Non-Reactive; HIV-1p24 Antigen Non-Reactive
== END ==
LOC: COL.LAB 11:20
PROVIDERS: Family Medicine
DX: Z01.419 Encounter for gynecological examination (general) (routine) without abnormal findings (principal)

== ENCOUNTER → 2017-07-21 | Outpatient (CLI) | payer MEDICARE | LOC: BHSO 12:51 | DX: F33.1 Major depressive disorder, recurrent, moderate (principal) | CPT/HCPCS: 90791-AI ==

== ENCOUNTER 2017-08-01 08:16 | Emergency (ER) | payer MEDICARE ==
[~2017-08-01] VITALS: Ht 157.5 cm; Wt 59.1 kg
[2017-08-01 08:27] VITALS: BP 134/73; PULSE 93; TEMP 97.9
== END 2017-08-01 08:47 | disposition home or self-care (01) ==
LOC: COL.ER 08:16
DX: Z43.3 Encounter for attention to colostomy (principal); K21.9 Gastro-esophageal reflux disease without esophagitis; F17.210 Nicotine dependence, cigarettes, uncomplicated; Z85.038 Personal history of other malignant neoplasm of large intestine; Z98.51 Tubal ligation status; Z98.890 Other specified postprocedural states

== ENCOUNTER → 2017-08-09 | Outpatient (CLI) | payer MEDICARE | LOC: BHSO 13:19 | DX: F33.1 Major depressive disorder, recurrent, moderate (principal) ==

== ENCOUNTER 2017-09-01 09:26 | Emergency (ER) | payer MEDICARE ==
[~2017-09-01] VITALS: Ht 157.5 cm; Wt 61.8 kg
[2017-09-01 09:28] VITALS: BP 111/60; PULSE 78; TEMP 97.7
[2017-09-01] MEDS ORDERED: ATIVAN 0.50.5 MG/TAB PO (09:36)
== END 2017-09-01 10:23 | disposition home or self-care (01) ==
LOC: COL.ER 09:26
DX: Z48.815 Encounter for surgical aftercare following surgery on the digestive system (principal); L30.8 Other specified dermatitis; Z85.038 Personal history of other malignant neoplasm of large intestine

== ENCOUNTER → 2017-09-01 | Outpatient (CLI) | payer MEDICARE | LOC: MHCPAIN 08:17 | DX: G89.29 Other chronic pain (principal); M79.2 Neuralgia and neuritis, unspecified; M79.1 Myalgia; R10.9 Unspecified abdominal pain | CPT/HCPCS: G0463 ==

== ENCOUNTER → 2017-09-10 | Outpatient (CLI) | payer MEDICARE | LOC: BHSO 15:55 | DX: F41.1 Generalized anxiety disorder (principal) ==

== ENCOUNTER 2017-09-21 10:56 | Emergency (ER) | payer MEDICARE ==
[~2017-09-21] VITALS: Ht 157.5 cm; Wt 61.8 kg
[2017-09-21 11:05] VITALS: BP 122/71; PULSE 77; TEMP 98.3
[2017-09-21] MEDS ORDERED: DESYREL 50MG50 MG PO (11:09)
[2017-09-21] MEDS ORDERED: ZOLOFT 100MG100 MG PO (11:09)
[2017-09-21] MEDS ORDERED: MINIPRESS 1M1 MG/CAP PO (11:09)
[2017-09-21] MEDS ORDERED: BENTYL 10MG10 MG/CAP PO (11:09)
== END 2017-09-21 12:50 | disposition left against medical advice (07) ==
LOC: COL.ER 10:56
DX: K94.09 Other complications of colostomy (principal)

== ENCOUNTER 2017-09-21 13:39 | Emergency (ER) | payer MEDICARE ==
[~2017-09-21] VITALS: Ht 157.5 cm; Wt 62.3 kg
[~2017-09-21 13:39] MED LIST changes: +BENTYL 10MG10 MG/CAP PO; +MINIPRESS 1M1 MG/CAP PO; +ZOLOFT 100MG100 MG PO
[2017-09-21 13:43] VITALS: BP 108/62; TEMP 98.1
[2017-09-21 15:36] VITALS: PULSE 88
== END 2017-09-21 15:38 | disposition home or self-care (01) ==
LOC: COL.ER 13:39
DX: Z43.1 Encounter for attention to gastrostomy (principal); J44.9 Chronic obstructive pulmonary disease, unspecified; F32.9 Major depressive disorder, single episode, unspecified; F17.210 Nicotine dependence, cigarettes, uncomplicated; F12.90 Cannabis use, unspecified, uncomplicated; Z98.51 Tubal ligation status; Z90.710 Acquired absence of both cervix and uterus; Z90.5 Acquired absence of kidney

== ENCOUNTER → 2017-09-24 | Outpatient (CLI) | payer MEDICARE | LOC: MHCPAIN 08:05 | DX: G89.29 Other chronic pain (principal); M79.2 Neuralgia and neuritis, unspecified; M79.1 Myalgia; R10.9 Unspecified abdominal pain; F17.210 Nicotine dependence, cigarettes, uncomplicated | CPT/HCPCS: G0463 ==

== ENCOUNTER 2017-09-25 17:56 | Emergency (ER) | payer MEDICARE ==
[~2017-09-25] VITALS: Ht 157.5 cm; Wt 61.8 kg
[2017-09-25 17:58] VITALS: TEMP 97.4
[2017-09-25 18:51] VITALS: BP 148/93; PULSE 74
== END 2017-09-25 18:51 | disposition home or self-care (01) ==
LOC: COL.ER 17:56
DX: Z43.3 Encounter for attention to colostomy (principal); F17.210 Nicotine dependence, cigarettes, uncomplicated; Z85.038 Personal history of other malignant neoplasm of large intestine; Z98.51 Tubal ligation status; Z90.49 Acquired absence of other specified parts of digestive tract; Z90.5 Acquired absence of kidney

== ENCOUNTER 2017-09-27 16:08 | Emergency (ER) | payer MEDICARE ==
[~2017-09-27] VITALS: Ht 157.5 cm; Wt 61.4 kg
[2017-09-27 16:11] VITALS: BP 147/65; TEMP 98.2
[2017-09-27 16:50] VITALS: PULSE 72
== END 2017-09-27 16:51 | disposition home or self-care (01) ==
LOC: COL.ER 16:08
DX: Z43.1 Encounter for attention to gastrostomy (principal); G89.29 Other chronic pain; Z85.038 Personal history of other malignant neoplasm of large intestine

== ENCOUNTER 2017-10-12 09:44 | Emergency (ER) | payer MEDICARE ==
[~2017-10-12] VITALS: Ht 157.5 cm; Wt 61.4 kg
[2017-10-12 09:47] VITALS: BP 134/87; PULSE 75; TEMP 97.7
[2017-10-12 11:23] LABS: BASO % 0.4 % (0.0-2.0); EOS # 0.1 (0.0-0.7); EOS % 1.3 % (0-4.0); GRAN # 3.5 (1.4-6.5); GRAN % 49.4 % (42.2-75.2); HEMATOCRIT 44.5 % (37.0-47.0); HEMOGLOBIN 14.8 g/dl (12.5-16.0); LYMPH # 3.2 (1.2-3.4); LYMPH % 45.3 % (20.0-51.0); MEAN CELL VOLUME 93 fl (80.0-100.0); MEAN CORPUSCULAR HEMOGLOBIN 31 pg (27.0-31.0); MEAN CORPUSCULAR HGB CONC 33 g/dl (33.0-37.0); MEAN PLATELET VOLUME 10.2 fl (7.4-10.4); MONO # 0.3 (0.1-0.6); MONO % 3.5 % (1.7-9.3); PLATELET COUNT 162 K/mm3 (130-400); REDCELL DISTRIBUTION WIDTH-CV 12.5 % (11.5-14.5)
[2017-10-12 11:30] LABS: ALANINE AMINOTRANSFERASE 32 U/L (9-52); ALBUMIN 4.5 gm/dL (3.5-5.0); ALKALINE PHOSPHATASE 111 U/L (50-136); ANION GAP 9 mmol/L (7-16); AST,SGOT 26 U/L (15-37); BILIRUBIN,TOTAL 0.6 mg/dL (0.0-1.0); BLOOD UREA NITROGEN 15 mg/dL (7-17); CALCIUM 9.5 mg/dL (8.4-10.2); CARBON DIOXIDE 24 mmol/L (22-30); CHLORIDE 106 mmol/L (98-107); CREATININE, serum 0.96 mg/dL (0.52-1.25); GLUCOSE 86 mg/dL (74-106); LIPASE 28 U/L (23-300); POTASSIUM 4.4 mmol/L (3.4-5.0); SODIUM 139 mmol/L (137-145); TOTAL PROTEIN 7.4 gm/dL (6.4-8.2)
[2017-10-12 11:42] LABS: TROPONIN-I < 0.012 ng/mL (0.000-0.034)
== END 2017-10-12 11:36 | disposition left against medical advice (07) ==
LOC: COL.ER 09:44
PROVIDERS: Nurse Practitioner
DX: R07.9 Chest pain, unspecified (principal); J44.9 Chronic obstructive pulmonary disease, unspecified; F41.9 Anxiety disorder, unspecified; K21.9 Gastro-esophageal reflux disease without esophagitis; G89.29 Other chronic pain; F17.210 Nicotine dependence, cigarettes, uncomplicated

== ENCOUNTER → 2017-10-13 | Outpatient (CLI) | payer MEDICARE | LOC: BHSO 14:36 | DX: F33.41 Major depressive disorder, recurrent, in partial remission (principal) | CPT/HCPCS: G0463 ==

== ENCOUNTER → 2017-10-26 | Outpatient (CLI) | payer MEDICARE | LOC: MHCPAIN 11:04 | DX: G89.29 Other chronic pain (principal); M79.2 Neuralgia and neuritis, unspecified; M79.1 Myalgia; R10.9 Unspecified abdominal pain; F17.210 Nicotine dependence, cigarettes, uncomplicated | CPT/HCPCS: G0463 ==

== ENCOUNTER 2017-10-27 14:29 | Emergency (ER) | payer MEDICARE ==
[~2017-10-27] VITALS: Ht 157.5 cm; Wt 57.3 kg
[2017-10-27 14:33] VITALS: BP 135/78; PULSE 76; TEMP 97.8
[2017-10-27] MEDS ORDERED: CEPHALEXIN500 M1 PO (18:00)
== END 2017-10-27 18:19 | disposition home or self-care (01) ==
LOC: COL.ER 14:29
DX: K08.89 Other specified disorders of teeth and supporting structures (principal); F41.9 Anxiety disorder, unspecified; K21.9 Gastro-esophageal reflux disease without esophagitis; F17.210 Nicotine dependence, cigarettes, uncomplicated; Z88.0 Allergy status to penicillin; Z88.1 Allergy status to other antibiotic agents; Z88.2 Allergy status to sulfonamides; Z88.8 Allergy status to other drugs, medicaments and biological substances; Z93.3 Colostomy status

== ENCOUNTER → 2017-11-26 | Outpatient (CLI) | payer MEDICARE | LOC: MHCPAIN 08:13 | DX: G89.29 Other chronic pain (principal); M79.2 Neuralgia and neuritis, unspecified; M79.1 Myalgia; R10.9 Unspecified abdominal pain | CPT/HCPCS: G0463 ==

== ENCOUNTER 2017-12-02 14:42 | Emergency (ER) | payer MEDICARE ==
[~2017-12-02] VITALS: Ht 157.5 cm; Wt 55.3 kg
[2017-12-02 14:44] VITALS: TEMP 96.8
[2017-12-02 15:24] LABS: BASO % 0.3 % (0.0-2.0); EOS # 0.1 (0.0-0.7); EOS % 1.7 % (0-4.0); GRAN # 3.3 (1.4-6.5); GRAN % 50.1 % (42.2-75.2); HEMOGLOBIN 15.7 g/dl (12.5-16.0); LYMPH # 2.7 (1.2-3.4); LYMPH % 42.1 % (20.0-51.0); MEAN CELL VOLUME 90 fl (80.0-100.0); MEAN CORPUSCULAR HEMOGLOBIN 32 pg (27.0-31.0); MEAN CORPUSCULAR HGB CONC 35 g/dl (33.0-37.0); MEAN PLATELET VOLUME 11.1 fl (7.4-10.4); MONO # 0.4 (0.1-0.6); MONO % 5.6 % (1.7-9.3); PLATELET COUNT 167 K/mm3 (130-400); RED BLOOD COUNT 4.99 M/mm3 (4.10-5.30); REDCELL DISTRIBUTION WIDTH-CV 12.8 % (11.5-14.5)
[2017-12-02 15:36] LABS: ALANINE AMINOTRANSFERASE 26 U/L (9-52); ALBUMIN 4.4 gm/dL (3.5-5.0); ALKALINE PHOSPHATASE 97 U/L (50-136); ANION GAP 12 mmol/L (7-16); AST,SGOT 24 U/L (15-37); BILIRUBIN,TOTAL 0.4 mg/dL (0.0-1.0); BLOOD UREA NITROGEN 20 mg/dL (7-17); CALCIUM 9.2 mg/dL (8.4-10.2); CARBON DIOXIDE 22 mmol/L (22-30); CHLORIDE 101 mmol/L (98-107); CREATININE, serum 0.86 mg/dL (0.52-1.25); GLUCOSE 81 mg/dL (74-106); POTASSIUM 3.8 mmol/L (3.4-5.0); SODIUM 136 mmol/L (137-145); TOTAL PROTEIN 7.6 gm/dL (6.4-8.2)
[2017-12-02 15:55] LABS: TROPONIN-I < 0.012 ng/mL (0.000-0.034)
[2017-12-02 16:14] LABS: COLLECTION METHOD CLEAN CATCH
[2017-12-02 17:35] VITALS: BP 128/91; PULSE 60
[2017-12-02 17:45] LABS: MUCOUS Present /lpf; PH 5 (5-8); SQUAMOUS EPITHELIAL 0-2 /hpf; URINE APPEARANCE Clear; URINE BACTERIA None Seen /hpf; URINE BILIRUBIN Negative (NEGATIVE); URINE BLOOD Negative (NEGATIVE); URINE COLOR Amber; URINE GLUCOSE Negative (NEGATIVE); URINE KETONE 1+ (NEGATIVE); URINE LEUKOCYTE ESTERASE Negative (NEGATIVE); URINE NITRATE Negative (NEGATIVE); URINE PROTEIN(semi-quant) Negative (NEGATIVE); URINE RBC 0-2 /hpf; URINE UROBILINOGEN Negative (NEGATIVE)
== END 2017-12-02 17:44 | disposition home or self-care (01) ==
LOC: COL.ER 14:42
PROVIDERS: Physician Assistant
DX: R10.9 Unspecified abdominal pain (principal); G89.29 Other chronic pain; F17.210 Nicotine dependence, cigarettes, uncomplicated
CPT/HCPCS: J2270; Q9967

== ENCOUNTER → 2017-12-09 | Outpatient (CLI) | payer MEDICARE | LOC: BHSO 15:26 | DX: F33.41 Major depressive disorder, recurrent, in partial remission (principal) | CPT/HCPCS: G0463 ==

== ENCOUNTER → 2017-12-21 | Outpatient (CLI) | payer MEDICARE | LOC: MHCPAIN 14:09 | DX: G89.29 Other chronic pain (principal); M79.2 Neuralgia and neuritis, unspecified; M79.1 Myalgia; R10.9 Unspecified abdominal pain | CPT/HCPCS: G0463 ==

== ENCOUNTER 2017-12-25 18:27 | Emergency (ER) | payer MEDICARE ==
[~2017-12-25] VITALS: Ht 157.5 cm; Wt 56.4 kg
[2017-12-25 18:34] VITALS: BP 131/63; PULSE 65; TEMP 97.7
== END 2017-12-25 19:04 | disposition home or self-care (01) ==
LOC: COL.ER 18:27
DX: Z43.3 Encounter for attention to colostomy (principal); F41.9 Anxiety disorder, unspecified; K21.9 Gastro-esophageal reflux disease without esophagitis; F17.210 Nicotine dependence, cigarettes, uncomplicated; F12.90 Cannabis use, unspecified, uncomplicated; Z90.710 Acquired absence of both cervix and uterus; Z98.51 Tubal ligation status; Z98.890 Other specified postprocedural states

== ENCOUNTER 2017-12-27 11:00 | Emergency (ER) | payer MEDICARE ==
[~2017-12-27] VITALS: Ht 157.5 cm; Wt 57.3 kg
[2017-12-27 11:04] VITALS: TEMP 98.7
[2017-12-27 14:28] VITALS: BP 157/67; PULSE 69
== END 2017-12-27 14:29 | disposition home or self-care (01) ==
LOC: COL.ER 11:00
DX: R07.89 Other chest pain (principal); R05 Cough; F17.210 Nicotine dependence, cigarettes, uncomplicated; Z98.51 Tubal ligation status; Z90.710 Acquired absence of both cervix and uterus; Z90.5 Acquired absence of kidney; Z85.038 Personal history of other malignant neoplasm of large intestine

== ENCOUNTER → 2018-01-17 | Outpatient (CLI) | payer MEDICARE | LOC: MHCPAIN 09:16 | DX: G89.29 Other chronic pain (principal); M79.2 Neuralgia and neuritis, unspecified; M79.1 Myalgia | CPT/HCPCS: G0463 ==

== ENCOUNTER → 2018-02-22 | Outpatient (CLI) | payer MEDICARE | LOC: MHCPAIN 08:27 | DX: G89.29 Other chronic pain (principal); M79.2 Neuralgia and neuritis, unspecified; M79.1 Myalgia; R10.9 Unspecified abdominal pain | CPT/HCPCS: G0463 ==

== ENCOUNTER → 2018-03-09 | Outpatient (CLI) | payer MEDICARE | LOC: BHSO 14:17 | DX: F33.41 Major depressive disorder, recurrent, in partial remission (principal) | CPT/HCPCS: G0463 ==

== ENCOUNTER → 2018-03-29 | Outpatient (CLI) | payer MEDICARE | LOC: MHCPAIN 13:53 | DX: G89.29 Other chronic pain (principal); M79.2 Neuralgia and neuritis, unspecified; M79.1 Myalgia; R10.9 Unspecified abdominal pain | CPT/HCPCS: G0463 ==

== ENCOUNTER 2018-04-03 19:03 | Emergency (ER) | payer MEDICARE ==
[~2018-04-03] VITALS: Ht 157.5 cm; Wt 53.6 kg
[~2018-04-03 19:03] MED LIST changes: +FENTANYL 12MCG TD; -FENTANYL 25 MCG TD
[2018-04-03 19:05] VITALS: TEMP 97.8
[2018-04-03 19:42] LABS: BASO # 0.1 (0.0-0.2); BASO % 0.6 % (0.0-2.0); EOS # 0.3 (0.0-0.7); EOS % 4.1 % (0-4.0); GRAN % 38.9 % (42.2-75.2); HEMATOCRIT 40.6 % (37.0-47.0); HEMOGLOBIN 13.9 g/dl (12.5-16.0); LYMPH # 3.9 (1.2-3.4); LYMPH % 50.1 % (20.0-51.0); MEAN CELL VOLUME 95 fl (80.0-100.0); MEAN CORPUSCULAR HEMOGLOBIN 33 pg (27.0-31.0); MEAN CORPUSCULAR HGB CONC 34 g/dl (33.0-37.0); MEAN PLATELET VOLUME 10.6 fl (7.4-10.4); MONO # 0.5 (0.1-0.6); PLATELET COUNT 174 K/mm3 (130-400); RED BLOOD COUNT 4.28 M/mm3 (4.10-5.30); REDCELL DISTRIBUTION WIDTH-CV 12.4 % (11.5-14.5)
[2018-04-03 19:43] LABS: COLLECTION METHOD CLEAN CATCH
[2018-04-03 19:51] LABS: ALBUMIN 3.4 gm/dL (3.5-5.0); BILIRUBIN,TOTAL 0.3 mg/dL (0.0-1.0); CREATININE, serum 0.7 mg/dL (0.52-1.25); POTASSIUM 3.4 mmol/L (3.4-5.0); TOTAL PROTEIN 6.2 gm/dL (6.4-8.2)
[2018-04-03 20:06] LABS: MUCOUS Present /lpf; PH 5 (5-8); SQUAMOUS EPITHELIAL None Seen /hpf; URINE APPEARANCE Clear; URINE BACTERIA None Seen /hpf; URINE BILIRUBIN Negative (NEGATIVE); URINE BLOOD Negative (NEGATIVE); URINE COLOR Yellow; URINE GLUCOSE Negative (NEGATIVE); URINE KETONE Negative (NEGATIVE); URINE LEUKOCYTE ESTERASE Negative (NEGATIVE); URINE NITRATE Negative (NEGATIVE); URINE PROTEIN(semi-quant) 1+ (NEGATIVE); URINE RBC 0-2 /hpf
[2018-04-03] MEDS ORDERED: ZOFRAN ODT4 MG PO (20:54)
[2018-04-03 21:21] VITALS: BP 108/68; PULSE 62
== END 2018-04-03 21:15 | disposition home or self-care (01) ==
LOC: COL.ER 19:03
PROVIDERS: Emergency Medicine
DX: R10.30 Lower abdominal pain, unspecified (principal); K21.9 Gastro-esophageal reflux disease without esophagitis; F41.9 Anxiety disorder, unspecified; J44.9 Chronic obstructive pulmonary disease, unspecified; F17.210 Nicotine dependence, cigarettes, uncomplicated; Z90.710 Acquired absence of both cervix and uterus; Z90.5 Acquired absence of kidney; Z85.038 Personal history of other malignant neoplasm of large intestine; Z98.51 Tubal ligation status; Z79.891 Long term (current) use of opiate analgesic
CPT/HCPCS: J2270; J2405; Q9967

== ENCOUNTER 2018-04-17 18:55 | Emergency (ER) | payer MEDICARE ==
[~2018-04-17] VITALS: Ht 157.5 cm; Wt 52.7 kg
[2018-04-17 19:00] VITALS: BP 119/67; TEMP 98.2
[2018-04-17 19:39] LABS: BASO # 0.1 (0.0-0.2); BASO % 0.6 % (0.0-2.0); EOS # 0.2 (0.0-0.7); EOS % 2.8 % (0-4.0); GRAN # 3.5 (1.4-6.5); GRAN % 41.8 % (42.2-75.2); HEMATOCRIT 44.5 % (37.0-47.0); HEMOGLOBIN 15.3 g/dl (12.5-16.0); LYMPH % 48.8 % (20.0-51.0); MEAN CELL VOLUME 94 fl (80.0-100.0); MEAN CORPUSCULAR HEMOGLOBIN 32 pg (27.0-31.0); MEAN CORPUSCULAR HGB CONC 34 g/dl (33.0-37.0); MEAN PLATELET VOLUME 10.8 fl (7.4-10.4); MONO # 0.5 (0.1-0.6); MONO % 5.8 % (1.7-9.3); PLATELET COUNT 173 K/mm3 (130-400); RED BLOOD COUNT 4.75 M/mm3 (4.10-5.30); REDCELL DISTRIBUTION WIDTH-CV 12.3 % (11.5-14.5)
[2018-04-17 19:48] LABS: ALBUMIN 4.1 gm/dL (3.5-5.0); BILIRUBIN,TOTAL 0.5 mg/dL (0.0-1.0); C-REACTIVE PROTEIN 0.9 mg/dL (0.0-0.9); CALCIUM 9.5 mg/dL (8.4-10.2); CREATININE, serum 0.94 mg/dL (0.52-1.25); POTASSIUM 3.8 mmol/L (3.4-5.0); TOTAL PROTEIN 7.2 gm/dL (6.4-8.2)
[2018-04-17 20:31] VITALS: PULSE 68
== END 2018-04-17 20:31 | disposition home or self-care (01) ==
LOC: COL.ER 18:55
PROVIDERS: Emergency Medicine
DX: G89.29 Other chronic pain (principal); R10.84 Generalized abdominal pain; Z90.710 Acquired absence of both cervix and uterus; F17.210 Nicotine dependence, cigarettes, uncomplicated; Z85.038 Personal history of other malignant neoplasm of large intestine
CPT/HCPCS: J3010

== ENCOUNTER → 2018-04-27 | Outpatient (CLI) | payer MEDICARE | LOC: MHCPAIN 09:19 | DX: G89.29 Other chronic pain (principal); M79.2 Neuralgia and neuritis, unspecified; M79.1 Myalgia | CPT/HCPCS: G0463 ==

== ENCOUNTER → 2018-05-25 | Outpatient (CLI) | payer MEDICARE, MEDICAID | LOC: MHCPAIN 09:54 | DX: M79.2 Neuralgia and neuritis, unspecified (principal); M79.1 Myalgia; R10.817 Generalized abdominal tenderness | CPT/HCPCS: G0463 ==

== ENCOUNTER → 2018-06-09 | Outpatient (CLI) | payer MEDICARE, MEDICAID | LOC: BHSO 14:13 | DX: F41.1 Generalized anxiety disorder (principal) | CPT/HCPCS: G0463 ==

== ENCOUNTER → 2018-06-24 | Outpatient (CLI) | payer MEDICARE, MEDICAID | LOC: MHCPAIN 09:51 | DX: G89.29 Other chronic pain (principal); M79.2 Neuralgia and neuritis, unspecified; M79.1 Myalgia | CPT/HCPCS: G0463 ==

== ENCOUNTER → 2018-07-20 | Outpatient (CLI) | payer MEDICARE, MEDICAID | LOC: MHCPAIN 09:51 | DX: G89.29 Other chronic pain (principal); M79.2 Neuralgia and neuritis, unspecified; R10.817 Generalized abdominal tenderness | CPT/HCPCS: G0463 ==

== ENCOUNTER 2018-08-06 11:25 | Emergency (ER) | payer MEDICARE ==
[~2018-08-06] VITALS: Ht 157.5 cm; Wt 49.5 kg
[2018-08-06 11:28] VITALS: BP 132/71; TEMP 98.6
[2018-08-06] MEDS ORDERED: ZOFRAN 4MG T4 MG/TAB PO (11:39)
[2018-08-06] MEDS ORDERED: OMNICEF 300MG300 MG PO (12:33)
[2018-08-06 13:30] VITALS: PULSE 65
== END 2018-08-06 13:30 | disposition home or self-care (01) ==
LOC: COL.ER 11:25
DX: R51 Headache (principal); J45.909 Unspecified asthma, uncomplicated; F17.210 Nicotine dependence, cigarettes, uncomplicated; F12.90 Cannabis use, unspecified, uncomplicated
CPT/HCPCS: J1885

== ENCOUNTER → 2018-08-08 | Outpatient (CLI) | payer MEDICARE, MEDICAID ==
[~2018-08-08] MED LIST changes: +OMNICEF 300MG300 MG PO
== END ==
LOC: MHCPAIN 10:15
DX: G89.29 Other chronic pain (principal); M79.2 Neuralgia and neuritis, unspecified; R10.817 Generalized abdominal tenderness
CPT/HCPCS: G0463

== ENCOUNTER 2018-08-18 20:37 | Emergency (ER) | payer MEDICARE, MEDICAID ==
[~2018-08-18] VITALS: Ht 157.5 cm; Wt 51.8 kg
[2018-08-18 20:47] VITALS: TEMP 97.9
[2018-08-18 23:14] LABS: BASO # 0.1 (0.0-0.2); BASO % 0.6 % (0.0-2.0); EOS # 0.3 (0.0-0.7); EOS % 3.7 % (0-4.0); GRAN % 38.4 % (42.2-75.2); HEMATOCRIT 41.6 % (37.0-47.0); HEMOGLOBIN 14.3 g/dl (12.5-16.0); LYMPH % 51.6 % (20.0-51.0); MEAN CELL VOLUME 97 fl (80.0-100.0); MEAN CORPUSCULAR HEMOGLOBIN 33 pg (27.0-31.0); MEAN CORPUSCULAR HGB CONC 34 g/dl (33.0-37.0); MEAN PLATELET VOLUME 10.7 fl (7.4-10.4); MONO # 0.4 (0.1-0.6); MONO % 5.6 % (1.7-9.3); PLATELET COUNT 161 K/mm3 (130-400); RED BLOOD COUNT 4.29 M/mm3 (4.10-5.30); REDCELL DISTRIBUTION WIDTH-CV 12.4 % (11.5-14.5)
[2018-08-18 23:26] LABS: COLLECTION METHOD CLEAN CATCH
[2018-08-18 23:31] LABS: MUCOUS Present /lpf; PH 5 (5-8); SQUAMOUS EPITHELIAL 0-2 /hpf; URINE APPEARANCE Clear; URINE BACTERIA None Seen /hpf; URINE BILIRUBIN Negative (NEGATIVE); URINE BLOOD Negative (NEGATIVE); URINE COLOR Yellow; URINE GLUCOSE Negative (NEGATIVE); URINE KETONE Negative (NEGATIVE); URINE LEUKOCYTE ESTERASE Negative (NEGATIVE); URINE NITRATE Negative (NEGATIVE); URINE PROTEIN(semi-quant) Negative (NEGATIVE); URINE RBC 0-2 /hpf; URINE UROBILINOGEN Negative (NEGATIVE)
[2018-08-19 00:44] LABS: ALANINE AMINOTRANSFERASE 20 U/L (9-52); ALKALINE PHOSPHATASE 71 U/L (50-136); ANION GAP 4 mmol/L (7-16); AST,SGOT 21 U/L (15-37); BILIRUBIN,TOTAL 0.2 mg/dL (0.0-1.0); BLOOD UREA NITROGEN 24 mg/dL (7-17); CALCIUM 9.1 mg/dL (8.4-10.2); CARBON DIOXIDE 29 mmol/L (22-30); CHLORIDE 108 mmol/L (98-107); CREATININE, serum 0.92 mg/dL (0.52-1.25); GLUCOSE 90 mg/dL (74-106); POTASSIUM 4.2 mmol/L (3.4-5.0); SODIUM 141 mmol/L (137-145); TOTAL PROTEIN 6.8 gm/dL (6.4-8.2)
[2018-08-19 00:45] LABS: C-REACTIVE PROTEIN < 0.5 mg/dL (0.0-0.9)
[2018-08-19 01:28] VITALS: BP 118/62; PULSE 61
== END 2018-08-19 01:29 | disposition home or self-care (01) ==
LOC: COL.ER 20:37
PROVIDERS: Nurse Practitioner
DX: M54.5 Low back pain (principal); G89.29 Other chronic pain; R10.9 Unspecified abdominal pain; F17.210 Nicotine dependence, cigarettes, uncomplicated; F41.9 Anxiety disorder, unspecified; K21.9 Gastro-esophageal reflux disease without esophagitis; J44.1 Chronic obstructive pulmonary disease with (acute) exacerbation; Z85.038 Personal history of other malignant neoplasm of large intestine
CPT/HCPCS: J1885

== ENCOUNTER 2018-09-18 15:18 | Emergency (ER) | payer MEDICARE ==
[~2018-09-18] VITALS: Ht 157.5 cm; Wt 51.8 kg
[2018-09-18 15:21] VITALS: BP 132/82; TEMP 98
[2018-09-18 15:53] LABS: BASO # 0.1 (0.0-0.2); BASO % 0.6 % (0.0-2.0); EOS # 0.3 (0.0-0.7); EOS % 2.9 % (0-4.0); GRAN # 4.5 (1.4-6.5); GRAN % 52.4 % (42.2-75.2); HEMATOCRIT 44.8 % (37.0-47.0); HEMOGLOBIN 15.2 g/dl (12.5-16.0); LYMPH # 3.3 (1.2-3.4); LYMPH % 38.6 % (20.0-51.0); MEAN CELL VOLUME 97 fl (80.0-100.0); MEAN CORPUSCULAR HEMOGLOBIN 33 pg (27.0-31.0); MEAN CORPUSCULAR HGB CONC 34 g/dl (33.0-37.0); MEAN PLATELET VOLUME 11.1 fl (7.4-10.4); MONO # 0.5 (0.1-0.6); MONO % 5.4 % (1.7-9.3); PLATELET COUNT 173 K/mm3 (130-400); RED BLOOD COUNT 4.61 M/mm3 (4.10-5.30); REDCELL DISTRIBUTION WIDTH-CV 12.2 % (11.5-14.5)
[2018-09-18 16:08] LABS: ALBUMIN 4.4 gm/dL (3.5-5.0); ANION GAP 6 mmol/L (7-16); BILIRUBIN,TOTAL 0.6 mg/dL (0.0-1.0); BLOOD UREA NITROGEN 24 mg/dL (7-17); CALCIUM 9.6 mg/dL (8.4-10.2); CARBON DIOXIDE 26 mmol/L (22-30); CHLORIDE 111 mmol/L (98-107); CREATININE, serum 0.87 mg/dL (0.52-1.25); GLUCOSE 110 mg/dL (74-106); SODIUM 142 mmol/L (137-145); TOTAL PROTEIN 7.4 gm/dL (6.4-8.2)
[2018-09-18 16:22] LABS: C-REACTIVE PROTEIN < 0.5 mg/dL (0.0-0.9); TROPONIN-I < 0.012 ng/mL (0.000-0.034)
[2018-09-18 16:30] LABS: ALANINE AMINOTRANSFERASE 18 U/L (9-52); ALKALINE PHOSPHATASE 78 U/L (50-136); AST,SGOT 40 U/L (15-37); POTASSIUM 4.4 mmol/L (3.4-5.0)
[2018-09-18 17:08] VITALS: PULSE 63
== END 2018-09-18 17:08 | disposition home or self-care (01) ==
LOC: COL.ER 15:18
PROVIDERS: Emergency Medicine
DX: F41.9 Anxiety disorder, unspecified (principal); R00.2 Palpitations; J44.9 Chronic obstructive pulmonary disease, unspecified; K21.9 Gastro-esophageal reflux disease without esophagitis; F43.10 Post-traumatic stress disorder, unspecified; F32.9 Major depressive disorder, single episode, unspecified; F17.210 Nicotine dependence, cigarettes, uncomplicated
CPT/HCPCS: J7030

== ENCOUNTER → 2018-10-05 | Outpatient (CLI) | payer MEDICARE | LOC: BHSO 08:47 | DX: F33.42 Major depressive disorder, recurrent, in full remission (principal) | CPT/HCPCS: G0463 ==

== ENCOUNTER 2018-10-16 15:29 | Emergency (ER) | payer MEDICARE ==
[~2018-10-16] VITALS: Ht 157.5 cm; Wt 49.1 kg
[2018-10-16 15:30] VITALS: BP 123/66; TEMP 97.9
[2018-10-16] MEDS ORDERED: LIORESAL 1010 MG/TAB PO (16:29)
[2018-10-16 18:51] VITALS: PULSE 80
== END 2018-10-16 18:52 | disposition home or self-care (01) ==
LOC: COL.ER 15:29
DX: G89.29 Other chronic pain (principal); R10.9 Unspecified abdominal pain; K62.89 Other specified diseases of anus and rectum; F12.90 Cannabis use, unspecified, uncomplicated; J44.9 Chronic obstructive pulmonary disease, unspecified; F41.9 Anxiety disorder, unspecified; K21.9 Gastro-esophageal reflux disease without esophagitis; F17.210 Nicotine dependence, cigarettes, uncomplicated; Z98.51 Tubal ligation status; Z90.710 Acquired absence of both cervix and uterus
CPT/HCPCS: J2270

== ENCOUNTER → 2018-10-25 | Outpatient (CLI) | payer MEDICARE ==
[~2018-10-25] MED LIST changes: +LIORESAL 1010 MG/TAB PO
== END ==
LOC: MHCPAIN 08:49
DX: G89.29 Other chronic pain (principal); M79.2 Neuralgia and neuritis, unspecified
CPT/HCPCS: G0463

== ENCOUNTER → 2018-11-23 | Outpatient (CLI) | payer MEDICARE | LOC: MHCPAIN 07:41 | DX: G89.29 Other chronic pain (principal); M79.2 Neuralgia and neuritis, unspecified | CPT/HCPCS: G0463 ==

== ENCOUNTER 2018-11-27 16:45 | Emergency (ER) | payer MEDICARE | END 2018-11-27 20:10 | disposition home or self-care (01) | LOC: COL.ER 16:45 | DX: N39.0 Urinary tract infection, site not specified (principal); K08.89 Other specified disorders of teeth and supporting structures; G89.29 Other chronic pain; M54.5 Low back pain; G89.18 Other acute postprocedural pain ==

== ENCOUNTER 2018-11-29 15:34 | Emergency (ER) | payer MEDICARE ==
[~2018-11-29] VITALS: Ht 157.5 cm; Wt 50.5 kg
[~2018-11-29 15:34] MED LIST changes: +MACROBID 1100 MG/CAP PO
[2018-11-29 15:36] VITALS: TEMP 98.1
[2018-11-29] MEDS ORDERED: LIDODERM 5% PATC1 EA TP (16:43)
[2018-11-29 16:57] VITALS: BP 126/73; PULSE 75
== END 2018-11-29 17:12 | disposition home or self-care (01) ==
LOC: COL.ER 15:34
DX: S22.32XA Fracture of one rib, left side, initial encounter for closed fracture (principal); F17.210 Nicotine dependence, cigarettes, uncomplicated; Z79.82 Long term (current) use of aspirin; W00.0XXA Fall on same level due to ice and snow, initial encounter; Y92.009 Unspecified place in unspecified non-institutional (private) residence as the place of occurrence of the external cause

== ENCOUNTER 2018-12-02 21:31 | Emergency (ER) | payer MEDICARE ==
[~2018-12-02] VITALS: Ht 157.5 cm; Wt 50.5 kg
[~2018-12-02 21:31] MED LIST changes: +LIDODERM 5% PATC1 EA TP
[2018-12-02 21:41] VITALS: TEMP 98
[2018-12-02] MEDS ORDERED: SPIRIVA RE2.5 MCG/Ac IH (23:12)
[2018-12-02] MEDS ORDERED: REMERON 15M15 MG/TA1 PO (23:13)
[2018-12-02] MEDS ORDERED: MYRBETR50MG PO (23:14)
[2018-12-03 00:07] VITALS: BP 109/92; PULSE 74
== END 2018-12-03 00:07 | disposition home or self-care (01) ==
LOC: COL.ER 21:31
DX: S22.42XA Multiple fractures of ribs, left side, initial encounter for closed fracture (principal); K21.9 Gastro-esophageal reflux disease without esophagitis; F41.9 Anxiety disorder, unspecified; M32.9 Systemic lupus erythematosus, unspecified; G89.29 Other chronic pain; F17.210 Nicotine dependence, cigarettes, uncomplicated; Z85.038 Personal history of other malignant neoplasm of large intestine; W18.30XA Fall on same level, unspecified, initial encounter
CPT/HCPCS: A9284

== ENCOUNTER → 2018-12-20 | Outpatient (CLI) | payer MEDICARE ==
[~2018-12-20] MED LIST changes: +MYRBETR50MG PO; +REMERON 15M15 MG/TA1 PO; +SPIRIVA RE2.5 MCG/Ac IH
== END ==
LOC: MHCPAIN 07:57
DX: G89.29 Other chronic pain (principal); M79.2 Neuralgia and neuritis, unspecified; R10.817 Generalized abdominal tenderness
CPT/HCPCS: G0463

== ENCOUNTER → 2019-01-13 | Outpatient (CLI) | payer MEDICARE | LOC: BHSO 10:46 | DX: F33.1 Major depressive disorder, recurrent, moderate (principal) | CPT/HCPCS: G0463 ==

== ENCOUNTER → 2019-02-21 | Outpatient (CLI) | payer MEDICARE | LOC: MHCPAIN 08:24 | DX: G89.29 Other chronic pain (principal); M79.2 Neuralgia and neuritis, unspecified | CPT/HCPCS: G0463 ==

== ENCOUNTER → 2019-02-23 | Outpatient (CLI) | payer MEDICARE | LOC: BHSO 14:10 | DX: F41.1 Generalized anxiety disorder (principal) | CPT/HCPCS: G0463 ==

== ENCOUNTER → 2019-03-22 | Outpatient (CLI) | payer MEDICARE | LOC: MHCPAIN 08:09 | DX: G89.29 Other chronic pain (principal); M79.2 Neuralgia and neuritis, unspecified | CPT/HCPCS: G0463 ==

== ENCOUNTER → 2019-04-19 | Outpatient (CLI) | payer MEDICARE | LOC: MHCPAIN 07:57 | DX: G89.29 Other chronic pain (principal); M79.2 Neuralgia and neuritis, unspecified | CPT/HCPCS: G0463 ==

== ENCOUNTER 2019-05-07 18:27 | Emergency (ER) | payer MEDICARE ==
[~2019-05-07] VITALS: Ht 160 cm; Wt 51.4 kg
[2019-05-07 18:30] VITALS: BP 119/74; TEMP 97.6
[2019-05-07 19:28] LABS: BASO # 0.1 (0.0-0.2); BASO % 0.8 % (0.0-2.0); EOS # 0.3 (0.0-0.7); EOS % 3.7 % (0-4.0); GRAN # 3.6 (1.4-6.5); HEMATOCRIT 41.9 % (37.0-47.0); HEMOGLOBIN 14.2 g/dl (12.5-16.0); LYMPH # 3.8 (1.2-3.4); LYMPH % 45.9 % (20.0-51.0); MEAN CELL VOLUME 97 fl (80.0-100.0); MEAN CORPUSCULAR HEMOGLOBIN 33 pg (27.0-31.0); MEAN CORPUSCULAR HGB CONC 34 g/dl (33.0-37.0); MONO # 0.5 (0.1-0.6); MONO % 6.4 % (1.7-9.3); PLATELET COUNT 163 K/mm3 (130-400)
[2019-05-07 19:41] LABS: ALANINE AMINOTRANSFERASE 15 U/L (9-52); ALBUMIN 3.8 gm/dL (3.5-5.0); ALKALINE PHOSPHATASE 96 U/L (50-136); ANION GAP 6 mmol/L (7-16); AST,SGOT 26 U/L (15-37); BILIRUBIN,TOTAL 0.3 mg/dL (0.0-1.0); BLOOD UREA NITROGEN 20 mg/dL (7-17); C-REACTIVE PROTEIN < 0.5 mg/dL (0.0-0.9); CALCIUM 8.8 mg/dL (8.4-10.2); CARBON DIOXIDE 29 mmol/L (22-30); CHLORIDE 108 mmol/L (98-107); CREATININE, serum 1.02 (0.52-1.25); GLUCOSE 79 mg/dL (74-106); LIPASE 56 U/L (23-300); POTASSIUM 4.5 mmol/L (3.4-5.0); SODIUM 143 mmol/L (137-145); TOTAL PROTEIN 6.6 gm/dL (6.4-8.2)
[2019-05-07 21:34] VITALS: PULSE 72
== END 2019-05-07 21:34 | disposition home or self-care (01) ==
LOC: COL.ER 18:27
PROVIDERS: Emergency Medicine
DX: R19.7 Diarrhea, unspecified (principal); R11.2 Nausea with vomiting, unspecified; R10.11 Right upper quadrant pain; R10.12 Left upper quadrant pain; R10.31 Right lower quadrant pain; R10.32 Left lower quadrant pain; F41.9 Anxiety disorder, unspecified; F17.210 Nicotine dependence, cigarettes, uncomplicated; J44.9 Chronic obstructive pulmonary disease, unspecified; F43.10 Post-traumatic stress disorder, unspecified; Z90.710 Acquired absence of both cervix and uterus; Z15.09 Genetic susceptibility to other malignant neoplasm
CPT/HCPCS: J2405; J7030

== ENCOUNTER → 2019-05-24 | Outpatient (CLI) | payer MEDICARE | LOC: MHCPAIN 09:33 | DX: G89.29 Other chronic pain (principal); M79.2 Neuralgia and neuritis, unspecified | CPT/HCPCS: G0463 ==

== ENCOUNTER 2019-05-31 06:19 | Emergency (ER) | payer MEDICARE ==
[~2019-05-31] VITALS: Ht 160 cm; Wt 51.8 kg
[2019-05-31 06:27] VITALS: TEMP 97.6
[2019-05-31 07:15] VITALS: BP 121/78; PULSE 74
== END 2019-05-31 07:25 | disposition home or self-care (01) ==
LOC: COL.ER 06:19
DX: K94.03 Colostomy malfunction (principal); F17.210 Nicotine dependence, cigarettes, uncomplicated; Z90.710 Acquired absence of both cervix and uterus

== ENCOUNTER 2019-06-01 00:22 | Emergency (ER) | payer MEDICARE ==
[~2019-06-01] VITALS: Ht 160 cm; Wt 51.8 kg
[2019-06-01 00:48] VITALS: TEMP 98.5
[2019-06-01 01:44] VITALS: BP 121/71; PULSE 81
== END 2019-06-01 01:40 | disposition home or self-care (01) ==
LOC: COL.ER 00:22
DX: Z43.3 Encounter for attention to colostomy (principal); F17.210 Nicotine dependence, cigarettes, uncomplicated; Z90.710 Acquired absence of both cervix and uterus; Z85.038 Personal history of other malignant neoplasm of large intestine

== ENCOUNTER → 2019-06-21 | Outpatient (CLI) | payer MEDICARE | LOC: MHCPAIN 07:57 | DX: G89.29 Other chronic pain (principal); M79.2 Neuralgia and neuritis, unspecified | CPT/HCPCS: G0463 ==

== ENCOUNTER → 2019-07-19 | Outpatient (CLI) | payer MEDICARE | LOC: MHCPAIN 14:08 | DX: G89.29 Other chronic pain (principal); M79.2 Neuralgia and neuritis, unspecified | CPT/HCPCS: G0463 ==

== ENCOUNTER → 2019-07-26 | Outpatient (CLI) | payer MEDICARE | LOC: BHSO 13:11 | DX: F33.41 Major depressive disorder, recurrent, in partial remission (principal) | CPT/HCPCS: G0463 ==

== ENCOUNTER → 2019-08-02 | Outpatient (CLI) | payer MEDICARE | LOC: COL.RAD 11:40 | DX: M25.521 Pain in right elbow (principal); M25.562 Pain in left knee ==

== ENCOUNTER → 2019-08-15 | Outpatient (CLI) | payer MEDICARE | LOC: MHCPAIN 08:19 | DX: G89.29 Other chronic pain (principal); M79.2 Neuralgia and neuritis, unspecified | CPT/HCPCS: G0463 ==

== ENCOUNTER → 2019-09-20 | Outpatient (CLI) | payer MEDICARE | LOC: MHCPAIN 08:30 | DX: M79.2 Neuralgia and neuritis, unspecified (principal) | CPT/HCPCS: G0463 ==

== ENCOUNTER 2019-10-01 19:55 | Inpatient (IN) | payer MEDICARE ==
[~2019-10-01] VITALS: Ht 160 cm; Wt 53.1 kg
[2019-10-01] MEDS ORDERED: PERCOCET 325 MG1 TA2 PO (21:00)
[2019-10-01 21:13] LABS: BASO % 0.4 % (0.0-2.0); EOS # 0.2 (0.0-0.7); EOS % 1.6 % (0-4.0); GRAN # 7.5 (1.4-6.5); GRAN % 68.6 % (42.2-75.2); HEMATOCRIT 45.1 % (37.0-47.0); HEMOGLOBIN 15.1 g/dl (12.5-16.0); LYMPH # 2.4 (1.2-3.4); LYMPH % 21.7 % (20.0-51.0); MEAN CELL VOLUME 98 fl (80.0-100.0); MEAN CORPUSCULAR HEMOGLOBIN 33 pg (27.0-31.0); MEAN CORPUSCULAR HGB CONC 34 g/dl (33.0-37.0); MEAN PLATELET VOLUME 11.5 fl (7.4-10.4); MONO # 0.8 (0.1-0.6); MONO % 7.5 % (1.7-9.3); PLATELET COUNT 131 K/mm3 (130-400); RED BLOOD COUNT 4.62 M/mm3 (4.10-5.30); REDCELL DISTRIBUTION WIDTH-CV 11.8 % (11.5-14.5)
[2019-10-01 21:22] LABS: ALANINE AMINOTRANSFERASE 20 U/L (9-52); ALBUMIN 4.1 gm/dL (3.5-5.0); ALKALINE PHOSPHATASE 74 U/L (50-136); ANION GAP 6 mmol/L (7-16); AST,SGOT 22 U/L (15-37); BILIRUBIN,TOTAL 0.4 mg/dL (0.0-1.0); BLOOD UREA NITROGEN 22 mg/dL (7-17); CARBON DIOXIDE 30 mmol/L (22-30); CHLORIDE 106 mmol/L (98-107); CREATININE, serum 0.99 (0.52-1.25); GLUCOSE 91 mg/dL (74-106); LIPASE 27 U/L (23-300); SODIUM 142 mmol/L (137-145); TOTAL PROTEIN 6.7 gm/dL (6.4-8.2)
[2019-10-01 21:24] LABS: C-REACTIVE PROTEIN < 0.5 mg/dL (0.0-0.9)
[2019-10-01 21:30] LABS: TROPONIN-I < 0.012 ng/mL (0.000-0.035)
[2019-10-01 22:28] LABS: COLLECTION METHOD CLEAN CATCH
[2019-10-01 22:42] LABS: MUCOUS Present /lpf; PH 5 (5-8); SQUAMOUS EPITHELIAL 0-2 /hpf; URINE APPEARANCE Clear; URINE BACTERIA None Seen /hpf; URINE BILIRUBIN Negative (NEGATIVE); URINE BLOOD Negative (NEGATIVE); URINE COLOR Yellow; URINE GLUCOSE Negative (NEGATIVE); URINE KETONE Negative (NEGATIVE); URINE LEUKOCYTE ESTERASE Negative (NEGATIVE); URINE NITRATE Negative (NEGATIVE); URINE PROTEIN(semi-quant) 1+ (NEGATIVE); URINE RBC 0-2 /hpf; URINE UROBILINOGEN Negative (NEGATIVE)
[2019-10-02 00:14] VITALS: BP 113/62; PULSE 79; TEMP 97.6
--- NOTE | 2019-10-02 01:08 | NUR ---
PT ADMITTED WITH Dx OF SMALL BOWEL OBSTRUCTION. PT ADMIN. ZOFRAN SOON AFTER ARRIVAL TO FLOOR. PT STATES HER COLOSTOMY IS ACTIVE. HYPOACTIVE BOWEL SOUNDS. SEE 5 PAGE ADMISSION ASSESSMENT.
[2019-10-02 03:41] VITALS: BP 91/55; PULSE 65; TEMP 98.5
--- NOTE | 2019-10-02 06:00 | NUR ---
RESTING QUIETLY/SLEEPING. NO MORE c/o NAUSEA. PT HAD SEVERAL BOWEL MOVEMENTS DURING THE NIGHT.
[2019-10-02 06:39] LABS: BASO % 0.5 % (0.0-2.0); EOS # 0.2 (0.0-0.7); EOS % 2.7 % (0-4.0); GRAN # 4.9 (1.4-6.5); GRAN % 57.2 % (42.2-75.2); HEMATOCRIT 40.8 % (37.0-47.0); HEMOGLOBIN 13.4 g/dl (12.5-16.0); LYMPH # 2.8 (1.2-3.4); LYMPH % 32.7 % (20.0-51.0); MEAN CELL VOLUME 100 fl (80.0-100.0); MEAN CORPUSCULAR HEMOGLOBIN 33 pg (27.0-31.0); MEAN CORPUSCULAR HGB CONC 33 g/dl (33.0-37.0); MEAN PLATELET VOLUME 11.2 fl (7.4-10.4); MONO # 0.6 (0.1-0.6); MONO % 6.7 % (1.7-9.3); PLATELET COUNT 126 K/mm3 (130-400); RED BLOOD COUNT 4.09 M/mm3 (4.10-5.30); REDCELL DISTRIBUTION WIDTH-CV 12.1 % (11.5-14.5)
[2019-10-02 06:51] LABS: BILIRUBIN,TOTAL 0.6 mg/dL (0.0-1.0); CREATININE, serum 0.72 (0.52-1.25); POTASSIUM 4.1 mmol/L (3.4-5.0); TOTAL PROTEIN 5.3 gm/dL (6.4-8.2)
[2019-10-02 07:41] VITALS: BP 132/82; PULSE 62; TEMP 98.5
--- NOTE | 2019-10-02 08:14 | NUR ---
0720 Patient calls stating she needs to leave now, she has a court date today at 1300. Requested patient to wait to be seen by physician this morning before leaving. Patient refuses to wait. Imformed patient if she leaves it will be AMA. Patient states "I don't care, I'm leaving." CARLOS Marroquin with hospitalist notified. 0750 Patient has pulled IV out and is in bathroom getting dressed, states she will not wait and is leaving. 0800 AMA paperwork offered to patient, patient states "I'm not signing that." Explained paperwork to patient, still refuses to sign. Patient left at 0805 AMA, refused to sign AMA form.
--- NOTE | 2019-10-02 10:00 | NUR ---
The patient left AMA before SW could do initial intake.
== END 2019-10-02 08:05 | disposition left against medical advice (07) | DRG 390 ==
LOC: COL.ER 19:55 → SURG 23:03
PROVIDERS: Emergency Medicine; Nurse Practitioner Family; ADMIT Hospitalist
DX: K56.609 Unspecified intestinal obstruction, unspecified as to partial versus complete obstruction (principal); F41.9 Anxiety disorder, unspecified; F43.10 Post-traumatic stress disorder, unspecified; F32.9 Major depressive disorder, single episode, unspecified; J44.9 Chronic obstructive pulmonary disease, unspecified; K21.9 Gastro-esophageal reflux disease without esophagitis; G89.29 Other chronic pain; F17.210 Nicotine dependence, cigarettes, uncomplicated; Z85.038 Personal history of other malignant neoplasm of large intestine; Z90.49 Acquired absence of other specified parts of digestive tract; Z85.54 Personal history of malignant neoplasm of ureter; Z90.6 Acquired absence of other parts of urinary tract; Z90.710 Acquired absence of both cervix and uterus; Z98.51 Tubal ligation status; Z79.891 Long term (current) use of opiate analgesic; Z88.0 Allergy status to penicillin; Z88.1 Allergy status to other antibiotic agents; Z88.2 Allergy status to sulfonamides; Z88.8 Allergy status to other drugs, medicaments and biological substances
CPT/HCPCS: 99222-AI; J1170; J2405; J7030; Q9967

== ENCOUNTER 2019-10-08 11:44 | Inpatient (IN) | payer MEDICARE ==
[~2019-10-08] VITALS: Ht 160 cm; Wt 55.0 kg
[2019-10-08 13:07] LABS: BASO % 0.3 % (0.0-2.0); EOS % 0.5 % (0-4.0); GRAN # 6.8 (1.4-6.5); GRAN % 76.5 % (42.2-75.2); HEMATOCRIT 44.5 % (37.0-47.0); HEMOGLOBIN 15.3 g/dl (12.5-16.0); LYMPH # 1.5 (1.2-3.4); LYMPH % 16.5 % (20.0-51.0); MEAN CELL VOLUME 97 fl (80.0-100.0); MEAN CORPUSCULAR HEMOGLOBIN 33 pg (27.0-31.0); MEAN CORPUSCULAR HGB CONC 34 g/dl (33.0-37.0); MEAN PLATELET VOLUME 11.8 fl (7.4-10.4); MONO # 0.5 (0.1-0.6); PLATELET COUNT 150 K/mm3 (130-400); RED BLOOD COUNT 4.61 M/mm3 (4.10-5.30); REDCELL DISTRIBUTION WIDTH-CV 12.1 % (11.5-14.5)
[2019-10-08 13:08] LABS: ALANINE AMINOTRANSFERASE 9 U/L (9-52); ALBUMIN 4.2 gm/dL (3.5-5.0); ALKALINE PHOSPHATASE 70 U/L (50-136); ANION GAP 8 mmol/L (7-16); AST,SGOT 27 U/L (15-37); BILIRUBIN,TOTAL 0.7 mg/dL (0.0-1.0); BLOOD UREA NITROGEN 15 mg/dL (7-17); CALCIUM 9.4 mg/dL (8.4-10.2); CARBON DIOXIDE 27 mmol/L (22-30); CHLORIDE 105 mmol/L (98-107); CREATININE, serum 0.74 (0.52-1.25); GLUCOSE 98 mg/dL (74-106); SODIUM 140 mmol/L (137-145)
[2019-10-08 13:12] LABS: LIPASE < 10 U/L (23-300)
[2019-10-08 14:51] LABS: COLLECTION METHOD CLEAN CATCH
[2019-10-08 14:59] LABS: PH 7 (5-8); SQUAMOUS EPITHELIAL 0-2 /hpf; URINE APPEARANCE Clear; URINE BACTERIA None Seen /hpf; URINE BILIRUBIN Negative (NEGATIVE); URINE BLOOD 2+ (NEGATIVE); URINE COLOR Straw; URINE GLUCOSE Negative (NEGATIVE); URINE KETONE Negative (NEGATIVE); URINE LEUKOCYTE ESTERASE Negative (NEGATIVE); URINE NITRATE Negative (NEGATIVE); URINE PROTEIN(semi-quant) Negative (NEGATIVE); URINE UROBILINOGEN Negative (NEGATIVE)
--- NOTE | 2019-10-08 16:00 | NUR ---
Patient arrived to floor from ED. Patient is alert and oriented, but sleepy. Patient complains of pain 10/10, administered PRN pain medication per order. Patient denies further needs at this time, call light within reach.
[2019-10-08 16:15] VITALS: BP 143/75; PULSE 60; TEMP 97.6
[2019-10-08 16:16] VITALS: BP 143/75; PULSE 60; TEMP 97.6
[2019-10-08 20:10] VITALS: BP 132/77; PULSE 68; TEMP 98
[2019-10-08 23:48] VITALS: BP 152/72; PULSE 77; TEMP 98.5
[2019-10-09 04:00] VITALS: BP 148/77; PULSE 76; TEMP 98.4
[2019-10-09 07:33] LABS: BASO % 0.6 % (0.0-2.0); EOS # 0.1 (0.0-0.7); GRAN % 54.7 % (42.2-75.2); HEMATOCRIT 40.5 % (37.0-47.0); HEMOGLOBIN 13.4 g/dl (12.5-16.0); LYMPH # 1.7 (1.2-3.4); LYMPH % 30.9 % (20.0-51.0); MEAN CELL VOLUME 99 fl (80.0-100.0); MEAN CORPUSCULAR HEMOGLOBIN 33 pg (27.0-31.0); MEAN CORPUSCULAR HGB CONC 33 g/dl (33.0-37.0); MEAN PLATELET VOLUME 11.4 fl (7.4-10.4); MONO # 0.6 (0.1-0.6); MONO % 11.6 % (1.7-9.3); PLATELET COUNT 148 K/mm3 (130-400); RED BLOOD COUNT 4.09 M/mm3 (4.10-5.30); REDCELL DISTRIBUTION WIDTH-CV 12.5 % (11.5-14.5)
[2019-10-09 07:48] LABS: ALBUMIN 3.5 gm/dL (3.5-5.0); BILIRUBIN,TOTAL 0.8 mg/dL (0.0-1.0); CALCIUM 8.7 mg/dL (8.4-10.2); CREATININE, serum 0.88 (0.52-1.25); MAGNESIUM 2.1 mg/dL (1.6-2.3); PHOSPHOROUS 4.9 mg/dL (2.5-4.5); POTASSIUM 3.6 mmol/L (3.4-5.0)
[2019-10-09 07:53] VITALS: BP 132/62; PULSE 92; TEMP 98.3
[2019-10-09 11:47] VITALS: BP 126/70; PULSE 55; TEMP 97.6
--- NOTE | 2019-10-09 13:12 | NUR ---
First visit from the hearing aid specialist. No needs right now.
--- NOTE | 2019-10-09 13:28 | NUR ---
ANTON met with the patient and her roommate, Wilfredo, to discuss discharge plan. The patient lives in [place] with her roommate, Wilfredo. She reports independence with ADLs and has a cane. The patient's PCP is Dr. Cherri Smith and she receives her medications at [facility]. She reports occasional difficulties affording her meds. ANTON informed the patient about prescription assistance through [employer]. The patient does not have advanced directives completed, but she was interested in obtaining a form for DPOA-HC. ANTON provided. The patient states that she has three daughters. Gale Edouard (ph#[phone]) and Chelsie Day (ph#[phone]) both live here in [place]. Her other daughter, TIERRA, lives in [place]. The patient plans to return home with her roommate upon discharge. SW to continue to follow as needed.
[2019-10-09 16:12] VITALS: BP 113/64; PULSE 55; TEMP 98.1
--- NOTE | 2019-10-09 17:30 | NUR ---
PATIENT'S ROOMMATE JUST CAME OUT TO THE DESK REQUESTING PAIN MEDS. NURSING STAFF JUST LEFT THE ROOM AND HAD GIVEN THE IV PAIN MEDS WELL , ORAL MIRILAX & COLACE. NURSING EVEN MENTIONED GOING FOR A WALK AFTER GIVING MEDICATIONS. BOTH PATIENT AND ROOMMATE THEN ACTED LIKE THEY REMEMBERED CONVERSATION WITH NURSING.
[2019-10-09 20:28] VITALS: BP 119/76; PULSE 69; TEMP 97.5
--- NOTE | 2019-10-09 21:40 | NUR ---
Pt. sitting up at bedside. at this time. Pt. is A&OX3, assessment complete. Pt. was given 1 percocet at 1932. Pt. educated on the need to transition fro IV pain medication to PO medication at that time. Pt. not happy about this change but willing to take the percocet. Informed pt. that if this didn't help we could re-evaluate pain in 1 hr. Due to other pt. needs unable to get into pt. room right away. Pt. given another Percocet at 2112. At 2134 pt. standing in hallway yelling out that no one was taking care of her pain. This nurse able to go to pt. room at this time. Pt. States, "You lied to me, you were going to give me my dilaudid 2 hrs. ago". Pt. reinformed that we would re-evaluate her pain and she was given a second percocet. Pt. continues to yell at this nurse that the percocet doesn't help and she'll just have to go to [facility]. This nurse informed her that she is not being held here against her will and can leave at any time after signing an AMA document. Pt. also informed that if her pain has not improved that we can give the dilaudid. Pt. accepts this and takes the dilaudid per orders. Pt. informed that the dilaudid is only every 4 hrs now and when she can have it again. Also informed the pt. when she can have the percocet. Pt. voices understanding at this time.
[2019-10-09 23:25] VITALS: BP 132/72; PULSE 52; TEMP 97.6
[2019-10-10 05:51] VITALS: BP 119/75; PULSE 48; TEMP 97.6
[2019-10-10 06:03] LABS: BASO % 0.5 % (0.0-2.0); EOS # 0.1 (0.0-0.7); GRAN # 1.7 (1.4-6.5); LYMPH # 1.9 (1.2-3.4); LYMPH % 45.9 % (20.0-51.0); MEAN CELL VOLUME 99 fl (80.0-100.0); MEAN CORPUSCULAR HEMOGLOBIN 33 pg (27.0-31.0); MEAN CORPUSCULAR HGB CONC 33 g/dl (33.0-37.0); MEAN PLATELET VOLUME 11.2 fl (7.4-10.4); MONO # 0.4 (0.1-0.6); MONO % 9.6 % (1.7-9.3); PLATELET COUNT 126 K/mm3 (130-400); RED BLOOD COUNT 3.67 M/mm3 (4.10-5.30); REDCELL DISTRIBUTION WIDTH-CV 12.4 % (11.5-14.5)
[2019-10-10 06:06] LABS: HEMATOCRIT 36.4 % (37.0-47.0)
[2019-10-10 06:18] LABS: CALCIUM 8.5 mg/dL (8.4-10.2); CREATININE, serum 0.71 (0.52-1.25); POTASSIUM 3.6 mmol/L (3.4-5.0)
[2019-10-10 07:52] VITALS: BP 132/78; PULSE 58; TEMP 98.4
--- NOTE | 2019-10-10 08:00 | NUR ---
Patient is very upset about her medications she is getting. She feels like we are not treating her pain. She is wanting to see the doctor and discharge home. Patient refused to allow this nurse to do an assessment. She stated she does not need one. She is rating her pain at a 10 on a 0-10 scale. She is also having nausea. No other changes at this time. Call light within reach.
--- NOTE | 2019-10-10 09:00 | NUR ---
Patient pulled out her IV. She decided to leave against medical advice. Asked her several times to wait for the doctor to come see her but she would not wait. She stated she had a bowel movement and that she was feeling better. Her ride is here to get her. Patient is leaving. She signed the form but did not want a copy. Patient walked out via wheel chair by Caitlyn HAQUE.
--- NOTE | 2019-10-10 09:47 | NUR ---
The patient left AMA. No additional needs at this time.
== END 2019-10-10 09:00 | disposition left against medical advice (07) | DRG 392 ==
LOC: COL.ER 11:44 → SURG 14:31
PROVIDERS: Emergency Medicine; Nurse Practitioner Family; ADMIT Family Medicine
DX: K59.00 Constipation, unspecified (principal); N13.30 Unspecified hydronephrosis; J44.9 Chronic obstructive pulmonary disease, unspecified; K21.9 Gastro-esophageal reflux disease without esophagitis; F32.9 Major depressive disorder, single episode, unspecified; F41.9 Anxiety disorder, unspecified; F43.10 Post-traumatic stress disorder, unspecified; F17.210 Nicotine dependence, cigarettes, uncomplicated; G89.29 Other chronic pain; Z90.49 Acquired absence of other specified parts of digestive tract; Z85.038 Personal history of other malignant neoplasm of large intestine; Z98.51 Tubal ligation status; Z90.710 Acquired absence of both cervix and uterus; Z91.14 Patient's other noncompliance with medication regimen; Z90.5 Acquired absence of kidney; Z79.891 Long term (current) use of opiate analgesic; Z88.0 Allergy status to penicillin; Z88.2 Allergy status to sulfonamides; Z88.1 Allergy status to other antibiotic agents; Z88.8 Allergy status to other drugs, medicaments and biological substances
CPT/HCPCS: 99222-AI; 99233-AI; 99239; J1170; J2405; J2550; J7030; Q9967

== ENCOUNTER → 2019-10-17 | Outpatient (CLI) | payer MEDICARE | LOC: MHCPAIN 08:15 | DX: M79.2 Neuralgia and neuritis, unspecified (principal); R10.9 Unspecified abdominal pain | CPT/HCPCS: G0463 ==

== ENCOUNTER → 2019-10-26 | Outpatient (CLI) | payer MEDICARE | LOC: BHSO 12:58 | DX: F41.1 Generalized anxiety disorder (principal) | CPT/HCPCS: G0463 ==

== ENCOUNTER 2019-11-02 01:18 | Emergency (ER) | payer MEDICARE ==
[~2019-11-02] VITALS: Ht 160 cm; Wt 50.0 kg
[2019-11-02 01:25] VITALS: TEMP 97.4
[2019-11-02 03:33] VITALS: BP 123/77; PULSE 70
== END 2019-11-02 03:33 | disposition home or self-care (01) ==
LOC: COL.ER 01:18
DX: S93.401A Sprain of unspecified ligament of right ankle, initial encounter (principal); S80.02XA Contusion of left knee, initial encounter; S80.01XA Contusion of right knee, initial encounter; K08.89 Other specified disorders of teeth and supporting structures; J44.9 Chronic obstructive pulmonary disease, unspecified; K21.9 Gastro-esophageal reflux disease without esophagitis; F41.9 Anxiety disorder, unspecified; F17.210 Nicotine dependence, cigarettes, uncomplicated; Z98.51 Tubal ligation status; Z90.710 Acquired absence of both cervix and uterus; V89.2XXA Person injured in unspecified motor-vehicle accident, traffic, initial encounter

== ENCOUNTER → 2019-11-14 | Outpatient (CLI) | payer MEDICARE | LOC: MHCPAIN 07:49 | DX: M54.5 Low back pain (principal); F17.210 Nicotine dependence, cigarettes, uncomplicated; Z85.038 Personal history of other malignant neoplasm of large intestine | CPT/HCPCS: G0463 ==

== ENCOUNTER 2020-02-09 11:19 | Emergency (ER) | payer MEDICARE ==
[~2020-02-09] VITALS: Ht 157.5 cm; Wt 54.5 kg
[2020-02-09 11:41] VITALS: BP 104/75; TEMP 97.4
[2020-02-09 13:48] VITALS: PULSE 86
--- NOTE | 2020-02-09 14:05 | NUR ---
SW received a social worker assistant consult to the ED for the patient due to needs PCP and stoma care consult. ANTON staffed with Dalila JULES and the patient need to establish care with Dr. De Souza for PCP and for iileostomy care. ANTON contacted Dr. De Souza's office and Urvashi confirmed that the patient has an initial telehealth appointment on February 12 at 10:[address] De Souza's office also has a wound care nurse to accommodate the patient's need for wound care support. ANTON printed out [facility] forms for the patient to fill out. ANTON met with the patient and she filled out the forms. ANTON informed the patient that Dr. De Souza's office would be able to manage her wound care needs as well. She was in agreeance with this. The patient receives her supplies from [employer] and needs [employer]. The patient states she has a dependency case manager at [place], Mr. Alvarado. The patient states she lives alone but has support. ANTON collaborated the above information with JORGE A Conner.
== END 2020-02-09 13:48 | disposition home or self-care (01) ==
LOC: COL.ER 11:19
DX: K94.09 Other complications of colostomy (principal); L98.8 Other specified disorders of the skin and subcutaneous tissue; F17.210 Nicotine dependence, cigarettes, uncomplicated; Z90.710 Acquired absence of both cervix and uterus; Z85.038 Personal history of other malignant neoplasm of large intestine

== ENCOUNTER 2020-02-21 11:09 | Emergency (ER) | payer MEDICARE ==
[~2020-02-21] VITALS: Ht 157.5 cm; Wt 55.0 kg
[2020-02-21 11:27] VITALS: BP 141/88; TEMP 96.7
[2020-02-21] MEDS ORDERED: PROAIR HFA0.09 MG/AC IH (11:42)
[2020-02-21 12:12] VITALS: PULSE 72
== END 2020-02-21 12:12 | disposition home or self-care (01) ==
LOC: COL.ER 11:09
DX: M25.562 Pain in left knee (principal); M25.561 Pain in right knee; Z90.710 Acquired absence of both cervix and uterus; Z85.038 Personal history of other malignant neoplasm of large intestine

== ENCOUNTER → 2020-03-12 | Outpatient (CLI) | payer MEDICARE | LOC: BHSO 08:59 | DX: F41.1 Generalized anxiety disorder (principal) | CPT/HCPCS: G0463 ==

== ENCOUNTER 2020-03-13 07:31 | Emergency (ER) | payer MEDICARE ==
[~2020-03-13] VITALS: Ht 160 cm; Wt 55.5 kg
[2020-03-13 07:38] VITALS: BP 124/83; TEMP 96.6
[2020-03-13 08:14] VITALS: PULSE 81
== END 2020-03-13 08:14 | disposition home or self-care (01) ==
LOC: COL.ER 07:31
DX: F41.9 Anxiety disorder, unspecified (principal); F17.210 Nicotine dependence, cigarettes, uncomplicated

== ENCOUNTER 2020-03-26 13:00 | Emergency (ER) | payer MEDICARE ==
[~2020-03-26] VITALS: Ht 160 cm; Wt 54.5 kg
[2020-03-26 13:16] VITALS: BP 116/79; TEMP 97.9
[2020-03-26 15:00] VITALS: PULSE 76
--- NOTE | 2020-03-26 15:13 | NUR ---
ANTON responded to ED consult. The patient presented to the emergency department with concerns for her ileostomy site as well as right hip pain. She states that she has ran out of ileostomy supplies. ANTON met with the patient. The patient reports that she has been staying at the [facility]. She states that they are making her find a place to stay in 24 hours and that she gets her ileostomy supplies from [facility]. She reports that she is not able to get more supplies until 03/31. The patient reports that her PCP is Dr. De Souza and that she just saw her last week. She states that her next appointment with Dr. De Souza is in three months. She states that she has two children: Gale Edouard and Chelsie. Chelsie in incarcerated and Gale lives in [place]. SW discussed if staying with Gale would be an option. The patient reports that Gale is at work right now and that they were already suppose to meet today at 1800. The patient reports that she wants to wait until then to talk to Gale about staying with her. She states that in the past, Gale's did not want her to stay with them. ANTON contacted Corie at the [facility]. Corie reports that the patient is able to come back [facility] the [facility] today and stay. She states that they did give the patient a deadline to find a place to stay and that deadline is for tomorrow. She reports that once the patient finds a place, they would pay her first months rent. Corie reports that they gave her this deadline, because the patient will not look for a place if the don't. She states that it also appears as though she is struggling to take oneself. She reports that their upper caser can meet with the patient tomorrow to find out where the patient is at in the process of finding a place. ANTON updated the patient about this. ANTON then contacted Gena at [facility]. Gena reports that patient was just in yesterday and that they gave the patient enough supplies to last her until the . Gena reports that they can only bill Medicare once a month and that the is the next day. She states that the patches are suppose to last 3-5 days. She states that the patient can come in the and they can refill her supplies. ANTON updated the patient about this and discussed home health services. The patient verbalized understanding. She states that the supplies they gave her broke and she declined home health. ANTON also attempted to contact Dr. De Souza's office to confirm that the patient did follow up there. ANTON left them a voicemail. ANTON updated the patient's RN on the above information. ANTON also asked the patient's RN on if we could give her enough ileostomy supplies to last her until the . A new bag was put on the patient while here. ANTON made an APS report. Intake ID#[id number].
== END 2020-03-26 15:00 | disposition home or self-care (01) ==
LOC: COL.ER 13:00
DX: M25.551 Pain in right hip (principal); R23.8 Other skin changes; G89.29 Other chronic pain; Z43.2 Encounter for attention to ileostomy; M54.10 Radiculopathy, site unspecified; J44.9 Chronic obstructive pulmonary disease, unspecified; F17.210 Nicotine dependence, cigarettes, uncomplicated; Z98.51 Tubal ligation status; Z91.14 Patient's other noncompliance with medication regimen; Z59.0 Homelessness; Z90.710 Acquired absence of both cervix and uterus; Z85.038 Personal history of other malignant neoplasm of large intestine
CPT/HCPCS: J1885

== ENCOUNTER → 2020-03-26 | Outpatient (CLI) | payer MEDICARE | LOC: MHCPAIN 15:07 | DX: G89.29 Other chronic pain (principal); R10.84 Generalized abdominal pain; F17.210 Nicotine dependence, cigarettes, uncomplicated | CPT/HCPCS: G0463 ==

== ENCOUNTER → 2020-04-23 | Outpatient (CLI) | payer MEDICARE | LOC: MHCPAIN 14:14 | DX: M79.2 Neuralgia and neuritis, unspecified (principal); G89.29 Other chronic pain; F17.210 Nicotine dependence, cigarettes, uncomplicated | CPT/HCPCS: G0463 ==

== ENCOUNTER 2020-05-16 01:08 | Emergency (ER) | payer MEDICARE ==
[~2020-05-16] VITALS: Ht 157.5 cm; Wt 54.1 kg
[2020-05-16 01:58] LABS: BASO # 0.1 (0.0-0.2); BASO % 0.9 % (0.0-2.0); EOS # 0.2 (0.0-0.7); EOS % 2.5 % (0-4.0); GRAN # 3.7 (1.4-6.5); GRAN % 48.9 % (42.2-75.2); HEMOGLOBIN 14.7 g/dl (12.5-16.0); LYMPH # 3.1 (1.2-3.4); LYMPH % 41.3 % (20.0-51.0); MEAN CELL VOLUME 96 fl (80.0-100.0); MEAN CORPUSCULAR HEMOGLOBIN 32 pg (27.0-31.0); MEAN CORPUSCULAR HGB CONC 33 g/dl (33.0-37.0); MEAN PLATELET VOLUME 11.1 fl (7.4-10.4); MONO # 0.5 (0.1-0.6); MONO % 6.1 % (1.7-9.3); PLATELET COUNT 175 K/mm3 (130-400); RED BLOOD COUNT 4.59 M/mm3 (4.10-5.30); REDCELL DISTRIBUTION WIDTH-CV 12.3 % (11.5-14.5)
[2020-05-16 02:09] LABS: ALANINE AMINOTRANSFERASE 11 U/L (4-34); ALBUMIN 4.1 gm/dL (3.5-5.0); ALKALINE PHOSPHATASE 96 U/L (50-136); ANION GAP 5 mmol/L (7-16); AST,SGOT 25 U/L (15-37); BILIRUBIN,TOTAL 0.4 mg/dL (0.0-1.0); BLOOD UREA NITROGEN 25 mg/dL (7-17); CALCIUM 9.4 mg/dL (8.4-10.2); CARBON DIOXIDE 27 mmol/L (22-30); CHLORIDE 108 mmol/L (98-107); CREATININE, serum 0.88 (0.52-1.25); GLUCOSE 117 mg/dL (74-106); LIPASE 70 U/L (23-300); POTASSIUM 4.6 mmol/L (3.4-5.0); SODIUM 140 mmol/L (137-145)
[2020-05-16 02:11] LABS: C-REACTIVE PROTEIN < 0.5 mg/dL (0.0-0.9)
[2020-05-16 03:35] LABS: COLLECTION METHOD CLEAN CATCH
[2020-05-16 03:42] LABS: PH 5 (5-8); SQUAMOUS EPITHELIAL 0-2 /hpf; URINE APPEARANCE Hazy; URINE BACTERIA Rare /hpf; URINE BILIRUBIN Negative (NEGATIVE); URINE BLOOD Negative (NEGATIVE); URINE COLOR Yellow; URINE GLUCOSE Negative (NEGATIVE); URINE KETONE Negative (NEGATIVE); URINE LEUKOCYTE ESTERASE Trace (NEGATIVE); URINE NITRATE Negative (NEGATIVE); URINE PROTEIN(semi-quant) Negative (NEGATIVE); URINE RBC 0-2 /hpf; URINE UROBILINOGEN Negative (NEGATIVE)
[2020-05-16] MEDS ORDERED: OMNICEF 300MG300 MG PO (03:47)
[2020-05-16 04:35] VITALS: BP 124/64; PULSE 74; TEMP 97.6
== END 2020-05-16 04:30 | disposition home or self-care (01) ==
LOC: COL.ER 01:08
PROVIDERS: Emergency Medicine
DX: R10.32 Left lower quadrant pain (principal); G89.29 Other chronic pain; F41.9 Anxiety disorder, unspecified; F32.9 Major depressive disorder, single episode, unspecified; J44.9 Chronic obstructive pulmonary disease, unspecified
CPT/HCPCS: J0696; J1790; J7030

== ENCOUNTER → 2020-06-25 | Outpatient (CLI) | payer BC, MEDICARE | LOC: BHSO 09:41 | DX: F41.1 Generalized anxiety disorder (principal) | CPT/HCPCS: G0463 ==

== ENCOUNTER → 2020-06-25 | Outpatient (CLI) | payer BC, MEDICARE | LOC: MHCPAIN 14:08 | DX: M79.2 Neuralgia and neuritis, unspecified (principal); M54.5 Low back pain; G89.29 Other chronic pain | CPT/HCPCS: G0463 ==

== ENCOUNTER → 2020-07-24 | Outpatient (CLI) | payer BC, MEDICARE | LOC: MHCPAIN 13:36 | DX: M54.5 Low back pain (principal); M79.2 Neuralgia and neuritis, unspecified; G89.29 Other chronic pain; G89.3 Neoplasm related pain (acute) (chronic) | CPT/HCPCS: G0463 ==

== ENCOUNTER 2020-08-16 08:26 | Emergency (ER) | payer BC, MEDICARE ==
[~2020-08-16] VITALS: Ht 160 cm; Wt 53.2 kg
[2020-08-16 09:29] LABS: BASO # 0.1 (0.0-0.2); BASO % 0.6 % (0.0-2.0); EOS % 0.3 % (0-4.0); GRAN # 5.4 (1.4-6.5); GRAN % 68.7 % (42.2-75.2); HEMATOCRIT 50.2 % (37.0-47.0); HEMOGLOBIN 16.8 g/dl (12.5-16.0); MEAN CELL VOLUME 97 fl (80.0-100.0); MEAN CORPUSCULAR HEMOGLOBIN 32 pg (27.0-31.0); MEAN CORPUSCULAR HGB CONC 34 g/dl (33.0-37.0); MEAN PLATELET VOLUME 10.8 fl (7.4-10.4); MONO # 0.3 (0.1-0.6); MONO % 4.1 % (1.7-9.3); PLATELET COUNT 205 K/mm3 (130-400); REDCELL DISTRIBUTION WIDTH-CV 12.6 % (11.5-14.5)
[2020-08-16 09:39] LABS: ALANINE AMINOTRANSFERASE 18 U/L (4-34); ALBUMIN 4.8 gm/dL (3.5-5.0); ALKALINE PHOSPHATASE 100 U/L (50-136); ANION GAP 7 mmol/L (7-16); AST,SGOT 33 U/L (15-37); BILIRUBIN,TOTAL 0.8 mg/dL (0.0-1.0); BLOOD UREA NITROGEN 18 mg/dL (7-17); CALCIUM 9.6 mg/dL (8.4-10.2); CARBON DIOXIDE 27 mmol/L (22-30); CHLORIDE 104 mmol/L (98-107); CREATININE, serum 0.92 (0.52-1.25); GLUCOSE 89 mg/dL (74-106); POTASSIUM 4.4 mmol/L (3.4-5.0); SODIUM 138 mmol/L (137-145)
[2020-08-16 09:52] LABS: C-REACTIVE PROTEIN < 0.5 mg/dL (0.0-0.9)
[2020-08-16 10:45] VITALS: BP 128/84; PULSE 86; TEMP 97.6
== END 2020-08-16 11:24 | disposition home or self-care (01) ==
LOC: COL.ER 08:26
PROVIDERS: Physician Assistant
DX: R11.10 Vomiting, unspecified (principal); F17.210 Nicotine dependence, cigarettes, uncomplicated; Z85.038 Personal history of other malignant neoplasm of large intestine; Z90.710 Acquired absence of both cervix and uterus; Z88.0 Allergy status to penicillin; Z88.1 Allergy status to other antibiotic agents; Z88.2 Allergy status to sulfonamides
CPT/HCPCS: J1885; J2405; J7030

== ENCOUNTER → 2020-08-21 | Outpatient (CLI) | payer BC, MEDICARE | LOC: MHCPAIN 09:41 | DX: M54.5 Low back pain (principal); M25.551 Pain in right hip; R10.84 Generalized abdominal pain; G89.29 Other chronic pain | CPT/HCPCS: G0463 ==

== ENCOUNTER 2020-09-16 13:24 | Emergency (ER) | payer SELFPAY ==
[~2020-09-16] VITALS: Ht 160 cm; Wt 53.6 kg
[2020-09-16 13:29] VITALS: BP 133/86; TEMP 97.3
[2020-09-16 14:58] VITALS: PULSE 75
[2020-09-16] MEDS ORDERED: CEPHALEXIN500 M1 PO (15:06)
== END 2020-09-16 14:58 | disposition home or self-care (01) ==
LOC: COL.ER 13:24
DX: S60.451A Superficial foreign body of left index finger, initial encounter (principal); G89.29 Other chronic pain; F17.210 Nicotine dependence, cigarettes, uncomplicated; Z88.0 Allergy status to penicillin; Z88.1 Allergy status to other antibiotic agents; Z88.2 Allergy status to sulfonamides; X58.XXXA Exposure to other specified factors, initial encounter

== ENCOUNTER → 2020-10-15 | Outpatient (CLI) | payer BC | LOC: MHCPAIN 15:51 | DX: M79.10 Myalgia, unspecified site (principal); M79.2 Neuralgia and neuritis, unspecified; G89.29 Other chronic pain | CPT/HCPCS: G0463 ==

== ENCOUNTER 2020-11-07 09:17 | Emergency (ER) | payer BC ==
[~2020-11-07] VITALS: Ht 157.5 cm; Wt 52.3 kg
[2020-11-07 09:49] VITALS: TEMP 97.7
[2020-11-07 11:27] LABS: BASO # 0.1 (0.0-0.2); BASO % 0.7 % (0.0-2.0); EOS # 0.1 (0.0-0.7); EOS % 0.6 % (0-4.0); GRAN # 5.3 (1.4-6.5); GRAN % 64.4 % (42.2-75.2); HEMATOCRIT 46.5 % (37.0-47.0); HEMOGLOBIN 15.7 g/dl (12.5-16.0); LYMPH # 2.4 (1.2-3.4); LYMPH % 29.4 % (20.0-51.0); MEAN CELL VOLUME 95 fl (80.0-100.0); MEAN CORPUSCULAR HEMOGLOBIN 32 pg (27.0-31.0); MEAN CORPUSCULAR HGB CONC 34 g/dl (33.0-37.0); MEAN PLATELET VOLUME 10.2 fl (7.4-10.4); MONO # 0.4 (0.1-0.6); MONO % 4.7 % (1.7-9.3); PLATELET COUNT 176 K/mm3 (130-400); RED BLOOD COUNT 4.92 M/mm3 (4.10-5.30); REDCELL DISTRIBUTION WIDTH-CV 11.8 % (11.5-14.5)
[2020-11-07 11:37] LABS: ALBUMIN 4.3 gm/dL (3.5-5.0); BILIRUBIN,TOTAL 0.8 mg/dL (0.0-1.0); CALCIUM 9.4 mg/dL (8.4-10.2); CREATININE, serum 0.86 (0.52-1.25); POTASSIUM 4.3 mmol/L (3.4-5.0)
[2020-11-07 14:20] VITALS: BP 130/76; PULSE 71
== END 2020-11-07 14:20 | disposition home or self-care (01) ==
LOC: COL.ER 09:17
PROVIDERS: Physician Assistant
DX: K52.9 Noninfective gastroenteritis and colitis, unspecified (principal); F17.210 Nicotine dependence, cigarettes, uncomplicated; Z90.710 Acquired absence of both cervix and uterus; Z88.1 Allergy status to other antibiotic agents; Z88.2 Allergy status to sulfonamides; Z88.0 Allergy status to penicillin; Z88.8 Allergy status to other drugs, medicaments and biological substances
CPT/HCPCS: J2550; J7030

== ENCOUNTER 2021-02-14 16:56 | Emergency (ER) | payer BC, MEDICARE ==
[~2021-02-14] VITALS: Ht 157.5 cm; Wt 49.1 kg
[2021-02-14] MEDS ORDERED: ATARAX 25MG25 MG/TAB PO (18:07)
[2021-02-14 18:13] VITALS: BP 123/82; PULSE 89; TEMP 98.4
== END 2021-02-14 18:13 | disposition home or self-care (01) ==
LOC: COL.ER 16:56
DX: L29.9 Pruritus, unspecified (principal); K52.9 Noninfective gastroenteritis and colitis, unspecified; F17.210 Nicotine dependence, cigarettes, uncomplicated; Z85.038 Personal history of other malignant neoplasm of large intestine; Z90.49 Acquired absence of other specified parts of digestive tract; Z88.0 Allergy status to penicillin; Z88.1 Allergy status to other antibiotic agents; Z88.2 Allergy status to sulfonamides; Z88.8 Allergy status to other drugs, medicaments and biological substances

== ENCOUNTER → 2021-02-27 | Emergency (ER) | payer BC, MEDICARE ==
[~2021-02-27] VITALS: Ht 157.5 cm; Wt 49.1 kg
[~2021-02-27] MED LIST changes: +FENTANYL 25 MCG TD; +PHENERGAN12.5 MG/SU RC
[2021-02-27 16:37] VITALS: TEMP 97.9
[2021-02-27 17:12] LABS: BASO # 0.1 (0.0-0.2); BASO % 0.6 % (0.0-2.0); EOS # 0.1 (0.0-0.7); EOS % 1.2 % (0-4.0); GRAN # 4.8 (1.4-6.5); GRAN % 57.9 % (42.2-75.2); HEMATOCRIT 41.7 % (37.0-47.0); HEMOGLOBIN 14.2 g/dl (12.5-16.0); LYMPH # 2.8 (1.2-3.4); LYMPH % 33.6 % (20.0-51.0); MEAN CELL VOLUME 95 fl (80.0-100.0); MEAN CORPUSCULAR HEMOGLOBIN 33 pg (27.0-31.0); MEAN CORPUSCULAR HGB CONC 34 g/dl (33.0-37.0); MEAN PLATELET VOLUME 10.3 fl (7.4-10.4); MONO # 0.5 (0.1-0.6); MONO % 6.5 % (1.7-9.3); PLATELET COUNT 175 K/mm3 (130-400); RED BLOOD COUNT 4.37 M/mm3 (4.10-5.30); REDCELL DISTRIBUTION WIDTH-CV 11.9 % (11.5-14.5)
[2021-02-27 17:22] LABS: ALBUMIN 4.1 gm/dL (3.5-5.0); BILIRUBIN,TOTAL 0.6 mg/dL (0.0-1.0); CREATININE, serum 0.78 (0.52-1.25); POTASSIUM 4.2 mmol/L (3.4-5.0); TOTAL PROTEIN 7.1 gm/dL (6.4-8.2)
[2021-02-27 17:35] VITALS: BP 126/78; PULSE 62
== END ==
LOC: COL.ER 16:30
PROVIDERS: Physician Assistant
DX: E86.0 Dehydration (principal); G89.29 Other chronic pain; F17.210 Nicotine dependence, cigarettes, uncomplicated; Z79.891 Long term (current) use of opiate analgesic; Z85.038 Personal history of other malignant neoplasm of large intestine; Z88.1 Allergy status to other antibiotic agents
CPT/HCPCS: J7030

== ENCOUNTER 2021-03-10 10:00 | Emergency (ER) | payer BC, MEDICARE ==
[~2021-03-10] VITALS: Ht 157.5 cm; Wt 48.6 kg
[~2021-03-10 10:00] MED LIST changes: -FENTANYL 25 MCG TD; -PHENERGAN12.5 MG/SU RC
[2021-03-10 10:14] VITALS: TEMP 97.6
[2021-03-10 10:28] LABS: BASO # 0.1 (0.0-0.2); BASO % 0.7 % (0.0-2.0); EOS # 0.1 (0.0-0.7); EOS % 1.3 % (0-4.0); GRAN # 4.8 (1.4-6.5); GRAN % 63.3 % (42.2-75.2); HEMATOCRIT 48.7 % (37.0-47.0); HEMOGLOBIN 16.2 g/dl (12.5-16.0); LYMPH # 2.2 (1.2-3.4); LYMPH % 28.1 % (20.0-51.0); MEAN CELL VOLUME 97 fl (80.0-100.0); MEAN CORPUSCULAR HEMOGLOBIN 32 pg (27.0-31.0); MEAN CORPUSCULAR HGB CONC 33 g/dl (33.0-37.0); MEAN PLATELET VOLUME 10.3 fl (7.4-10.4); MONO # 0.5 (0.1-0.6); MONO % 6.3 % (1.7-9.3); PLATELET COUNT 187 K/mm3 (130-400); RED BLOOD COUNT 5.03 M/mm3 (4.10-5.30); REDCELL DISTRIBUTION WIDTH-CV 11.9 % (11.5-14.5)
[2021-03-10 10:43] LABS: ALANINE AMINOTRANSFERASE 13 U/L (4-34); ALBUMIN 4.4 gm/dL (3.5-5.0); ALKALINE PHOSPHATASE 88 U/L (50-136); ANION GAP 3 mmol/L (7-16); AST,SGOT 27 U/L (15-37); BILIRUBIN,TOTAL 0.3 mg/dL (0.0-1.0); BLOOD UREA NITROGEN 18 mg/dL (7-17); CALCIUM 9.7 mg/dL (8.4-10.2); CARBON DIOXIDE 24 mmol/L (22-30); CHLORIDE 110 mmol/L (98-107); CREATININE, serum 0.84 (0.52-1.25); GLUCOSE 105 mg/dL (74-106); POTASSIUM 4.6 mmol/L (3.4-5.0); SODIUM 137 mmol/L (137-145); TOTAL PROTEIN 7.6 gm/dL (6.4-8.2)
[2021-03-10 10:56] LABS: LIPASE 51 U/L (23-300)
[2021-03-10 11:00] LABS: C-REACTIVE PROTEIN < 0.5 mg/dL (0.0-0.9)
[2021-03-10 11:36] LABS: COLLECTION METHOD CLEAN CATCH
[2021-03-10 11:44] LABS: MUCOUS Present /lpf; PH 5 (5-8); URINE APPEARANCE Hazy; URINE BACTERIA Rare /hpf; URINE BILIRUBIN Negative (NEGATIVE); URINE BLOOD Negative (NEGATIVE); URINE COLOR Yellow; URINE GLUCOSE Negative (NEGATIVE); URINE KETONE Negative (NEGATIVE); URINE LEUKOCYTE ESTERASE Negative (NEGATIVE); URINE NITRATE Negative (NEGATIVE); URINE PROTEIN(semi-quant) Negative (NEGATIVE); URINE RBC 0-2 /hpf; URINE UROBILINOGEN Negative (NEGATIVE)
[2021-03-10 12:26] VITALS: BP 124/84; PULSE 68
== END 2021-03-10 12:27 | disposition home or self-care (01) ==
LOC: COL.ER 10:00
PROVIDERS: Family Medicine
DX: R63.0 Anorexia (principal); E86.0 Dehydration; F17.210 Nicotine dependence, cigarettes, uncomplicated; Z85.038 Personal history of other malignant neoplasm of large intestine; Z90.710 Acquired absence of both cervix and uterus; Z88.0 Allergy status to penicillin; Z88.1 Allergy status to other antibiotic agents; Z88.2 Allergy status to sulfonamides; Z88.8 Allergy status to other drugs, medicaments and biological substances
CPT/HCPCS: J2405; J7120

== ENCOUNTER 2021-03-29 21:40 | Emergency (ER) | payer BC, MEDICARE ==
[~2021-03-29] VITALS: Ht 157.5 cm; Wt 50.9 kg
[2021-03-29 22:42] LABS: BASO % 0.4 % (0.0-2.0); EOS # 0.1 (0.0-0.7); EOS % 1.8 % (0-4.0); GRAN # 4.3 (1.4-6.5); GRAN % 54.8 % (42.2-75.2); HEMATOCRIT 44.5 % (37.0-47.0); HEMOGLOBIN 14.8 g/dl (12.5-16.0); LYMPH # 2.7 (1.2-3.4); LYMPH % 34.8 % (20.0-51.0); MEAN CELL VOLUME 98 fl (80.0-100.0); MEAN CORPUSCULAR HEMOGLOBIN 33 pg (27.0-31.0); MEAN CORPUSCULAR HGB CONC 33 g/dl (33.0-37.0); MEAN PLATELET VOLUME 10.1 fl (7.4-10.4); MONO # 0.6 (0.1-0.6); MONO % 7.8 % (1.7-9.3); PLATELET COUNT 184 K/mm3 (130-400); RED BLOOD COUNT 4.56 M/mm3 (4.10-5.30); REDCELL DISTRIBUTION WIDTH-CV 11.8 % (11.5-14.5)
[2021-03-29 22:53] LABS: BILIRUBIN,TOTAL 0.3 mg/dL (0.0-1.0); CALCIUM 9.1 mg/dL (8.4-10.2); CREATININE, serum 0.88 (0.52-1.25); POTASSIUM 4.3 mmol/L (3.4-5.0); TOTAL PROTEIN 6.9 gm/dL (6.4-8.2)
[2021-03-29] MEDS ORDERED: PHENERGAN12.5 MG/SU RC (23:47)
[2021-03-30 00:27] VITALS: BP 104/62; PULSE 61; TEMP 98
== END 2021-03-30 00:27 | disposition home or self-care (01) ==
LOC: COL.ER 21:40
PROVIDERS: Physician Assistant
DX: R11.2 Nausea with vomiting, unspecified (principal); E86.0 Dehydration; R63.0 Anorexia; F17.200 Nicotine dependence, unspecified, uncomplicated; Z85.038 Personal history of other malignant neoplasm of large intestine; Z93.2 Ileostomy status
CPT/HCPCS: J2405; J2550; J7030

== ENCOUNTER 2021-04-16 08:46 | Emergency (ER) | payer BC, MEDICARE ==
[~2021-04-16] VITALS: Ht 160 cm; Wt 50.5 kg
[~2021-04-16 08:46] MED LIST changes: +PHENERGAN12.5 MG/SU RC
[2021-04-16 08:57] VITALS: TEMP 98.2
[2021-04-16 09:53] LABS: BASO % 0.5 % (0.0-2.0); EOS # 0.1 (0.0-0.7); EOS % 1.3 % (0-4.0); GRAN % 65.6 % (42.2-75.2); HEMATOCRIT 44.2 % (37.0-47.0); HEMOGLOBIN 14.7 g/dl (12.5-16.0); LYMPH # 2.1 (1.2-3.4); LYMPH % 26.7 % (20.0-51.0); MEAN CELL VOLUME 99 fl (80.0-100.0); MEAN CORPUSCULAR HEMOGLOBIN 33 pg (27.0-31.0); MEAN CORPUSCULAR HGB CONC 33 g/dl (33.0-37.0); MONO # 0.4 (0.1-0.6); MONO % 5.5 % (1.7-9.3); PLATELET COUNT 178 K/mm3 (130-400); RED BLOOD COUNT 4.46 M/mm3 (4.10-5.30)
[2021-04-16 10:24] LABS: TROPONIN-I < 0.012 ng/mL (0.000-0.035)
[2021-04-16 10:29] LABS: ALBUMIN 3.2 gm/dL (3.5-5.0); BILIRUBIN,TOTAL 0.2 mg/dL (0.0-1.0); CALCIUM 8.8 mg/dL (8.4-10.2); CREATININE, serum 0.76 (0.52-1.25); POTASSIUM 4.4 mmol/L (3.4-5.0); TOTAL PROTEIN 5.8 gm/dL (6.4-8.2)
[2021-04-16 10:39] LABS: TSH w REFLEX 0.819 uIU/mL (0.465-4.680)
[2021-04-16 11:42] VITALS: BP 118/79; PULSE 81
== END 2021-04-16 11:48 | disposition home or self-care (01) ==
LOC: COL.ER 08:46
PROVIDERS: Emergency Medicine
DX: T67.5XXA Heat exhaustion, unspecified, initial encounter (principal); J44.9 Chronic obstructive pulmonary disease, unspecified; G89.3 Neoplasm related pain (acute) (chronic); Z20.822 Contact with and (suspected) exposure to COVID-19; Z88.0 Allergy status to penicillin; Z88.1 Allergy status to other antibiotic agents; Z88.2 Allergy status to sulfonamides; Z79.891 Long term (current) use of opiate analgesic; X30.XXXA Exposure to excessive natural heat, initial encounter
CPT/HCPCS: J7120

== ENCOUNTER 2021-04-26 06:35 | Emergency (ER) | payer BC, MEDICARE ==
[~2021-04-26] VITALS: Ht 160 cm; Wt 50.0 kg
[2021-04-26 06:41] VITALS: TEMP 98.3
[2021-04-26 07:16] LABS: BASO % 0.5 % (0.0-2.0); EOS # 0.2 (0.0-0.7); EOS % 3.4 % (0-4.0); GRAN # 3.3 (1.4-6.5); GRAN % 59.3 % (42.2-75.2); HEMATOCRIT 47.9 % (37.0-47.0); HEMOGLOBIN 15.7 g/dl (12.5-16.0); LYMPH # 1.5 (1.2-3.4); LYMPH % 27.6 % (20.0-51.0); MEAN CELL VOLUME 98 fl (80.0-100.0); MEAN CORPUSCULAR HEMOGLOBIN 32 pg (27.0-31.0); MEAN CORPUSCULAR HGB CONC 33 g/dl (33.0-37.0); MEAN PLATELET VOLUME 10.1 fl (7.4-10.4); MONO # 0.5 (0.1-0.6); PLATELET COUNT 173 K/mm3 (130-400); RED BLOOD COUNT 4.89 M/mm3 (4.10-5.30); REDCELL DISTRIBUTION WIDTH-CV 11.9 % (11.5-14.5)
[2021-04-26 07:28] LABS: ALBUMIN 3.9 gm/dL (3.5-5.0); BILIRUBIN,TOTAL 0.4 mg/dL (0.0-1.0); C-REACTIVE PROTEIN 1.4 mg/dL (0.0-0.9); CALCIUM 9.3 mg/dL (8.4-10.2); CREATININE, serum 0.75 (0.52-1.25); POTASSIUM 4.2 mmol/L (3.4-5.0); TOTAL PROTEIN 6.9 gm/dL (6.4-8.2)
[2021-04-26] MEDS ORDERED: PHENERGAN 25 TA25 MG PO (07:47)
[2021-04-26 08:34] LABS: COLLECTION METHOD CLEAN CATCH
[2021-04-26 08:47] LABS: PH 5 (5-8); SQUAMOUS EPITHELIAL 0-2 /hpf; URINE APPEARANCE Clear; URINE BACTERIA None Seen /hpf; URINE BILIRUBIN Negative (NEGATIVE); URINE BLOOD Negative (NEGATIVE); URINE COLOR Straw; URINE GLUCOSE Negative (NEGATIVE); URINE KETONE Negative (NEGATIVE); URINE LEUKOCYTE ESTERASE Negative (NEGATIVE); URINE NITRATE Negative (NEGATIVE); URINE PROTEIN(semi-quant) Negative (NEGATIVE); URINE RBC 0-2 /hpf; URINE UROBILINOGEN Negative (NEGATIVE)
[2021-04-26 09:33] VITALS: BP 122/78; PULSE 61
== END 2021-04-26 09:33 | disposition home or self-care (01) ==
LOC: COL.ER 06:35
PROVIDERS: Family Medicine
DX: R11.2 Nausea with vomiting, unspecified (principal); J44.9 Chronic obstructive pulmonary disease, unspecified; F17.210 Nicotine dependence, cigarettes, uncomplicated
CPT/HCPCS: J2550; J7120

== ENCOUNTER 2021-05-24 11:17 | Emergency (ER) | payer BC, MEDICARE ==
[~2021-05-24] VITALS: Ht 170.2 cm; Wt 48.6 kg
[2021-05-24 12:17] LABS: BASO % 0.5 % (0.0-2.0); EOS # 0.1 (0.0-0.7); GRAN # 3.3 (1.4-6.5); GRAN % 54.5 % (42.2-75.2); HEMATOCRIT 44.7 % (37.0-47.0); LYMPH # 2.3 (1.2-3.4); LYMPH % 37.5 % (20.0-51.0); MEAN CELL VOLUME 98 fl (80.0-100.0); MEAN CORPUSCULAR HEMOGLOBIN 33 pg (27.0-31.0); MEAN CORPUSCULAR HGB CONC 34 g/dl (33.0-37.0); MEAN PLATELET VOLUME 10.5 fl (7.4-10.4); MONO # 0.4 (0.1-0.6); MONO % 6.3 % (1.7-9.3); PLATELET COUNT 160 K/mm3 (130-400); RED BLOOD COUNT 4.56 M/mm3 (4.10-5.30)
[2021-05-24 12:22] LABS: BILIRUBIN,TOTAL 0.6 mg/dL (0.0-1.0); CREATININE, serum 0.81 (0.52-1.25); POTASSIUM 4.2 mmol/L (3.4-5.0); TOTAL PROTEIN 6.7 gm/dL (6.4-8.2)
[2021-05-24 14:11] VITALS: BP 140/91; PULSE 73; TEMP 97.6
== END 2021-05-24 14:13 | disposition home or self-care (01) ==
LOC: COL.ER 11:17
PROVIDERS: Physician Assistant
DX: R53.81 Other malaise (principal); R53.83 Other fatigue; R55 Syncope and collapse; G89.29 Other chronic pain; Z85.038 Personal history of other malignant neoplasm of large intestine; Z79.891 Long term (current) use of opiate analgesic
CPT/HCPCS: J7030

== ENCOUNTER 2021-07-04 20:29 | Emergency (ER) | payer BC, MEDICARE ==
[~2021-07-04] VITALS: Ht 160 cm; Wt 47.7 kg
[2021-07-04 20:48] VITALS: BP 144/70; TEMP 97.2
[2021-07-04] MEDS ORDERED: FENTANYL 25 MCG TD (21:15)
[2021-07-04] MEDS ORDERED: ZOFRAN ODT4 MG PO (21:15)
[2021-07-04] MEDS ORDERED: NORCO 325 MG-51 TAB PO ×2 (21:15)
[2021-07-04] MEDS ORDERED: ATIVAN 0.50.5 MG/TAB PO (21:21)
[2021-07-04] MEDS ORDERED: PERCOCET 325 MG1 TA2 PO (21:21)
[2021-07-04] MEDS ORDERED: LIORESAL 1010 MG/TAB PO (21:21)
[2021-07-04 21:28] VITALS: PULSE 82
== END 2021-07-04 21:28 | disposition home or self-care (01) ==
LOC: COL.ER 20:29
DX: R52 Pain, unspecified (principal); J44.9 Chronic obstructive pulmonary disease, unspecified

== ENCOUNTER 2021-07-07 17:00 | Emergency (ER) | payer BC, MEDICARE ==
[~2021-07-07] VITALS: Ht 160 cm; Wt 49.1 kg
[~2021-07-07 17:00] MED LIST changes: +FENTANYL 25 MCG TD
[2021-07-07 17:34] VITALS: BP 127/71; PULSE 98; TEMP 97.5
== END 2021-07-07 18:18 | disposition home or self-care (01) ==
LOC: COL.ER 17:00
DX: G89.29 Other chronic pain (principal); R10.9 Unspecified abdominal pain; K62.9 Disease of anus and rectum, unspecified; M54.50 Low back pain, unspecified; M79.604 Pain in right leg; M79.605 Pain in left leg; F11.20 Opioid dependence, uncomplicated; Z85.038 Personal history of other malignant neoplasm of large intestine; Z79.891 Long term (current) use of opiate analgesic

== ENCOUNTER 2021-07-11 05:41 | Emergency (ER) | payer BC, MEDICARE ==
[~2021-07-11] VITALS: Ht 160 cm; Wt 49.1 kg
[2021-07-11 05:56] VITALS: BP 128/74; PULSE 91; TEMP 98.4
== END 2021-07-11 06:30 | disposition home or self-care (01) ==
LOC: COL.ER 05:41
DX: M54.9 Dorsalgia, unspecified (principal); G89.29 Other chronic pain; Z76.0 Encounter for issue of repeat prescription; Z79.891 Long term (current) use of opiate analgesic

== ENCOUNTER 2021-07-12 10:01 | Emergency (ER) | payer BC, MEDICARE | END 2021-07-12 10:29 | disposition left against medical advice (07) | LOC: COL.ER 10:01 | DX: R52 Pain, unspecified (principal) ==

== ENCOUNTER 2021-08-13 10:33 | Emergency (ER) | payer BC, MEDICARE ==
[~2021-08-13] VITALS: Ht 157.5 cm; Wt 49.1 kg
[2021-08-13 12:31] LABS: BASO % 0.5 % (0.0-2.0); EOS # 0.1 K/mm3 (0.0-0.7); EOS % 1.5 % (0-4.0); GRAN # 4.8 K/mm3 (1.4-6.5); GRAN % 63.5 % (42.2-75.2); HEMATOCRIT 46.3 % (37.0-47.0); LYMPH # 2.2 K/mm3 (1.2-3.4); LYMPH % 28.8 % (20.0-51.0); MEAN CELL VOLUME 95 fl (80.0-100.0); MEAN CORPUSCULAR HEMOGLOBIN 33 pg (27.0-31.0); MEAN CORPUSCULAR HGB CONC 35 g/dl (33.0-37.0); MONO # 0.4 K/mm3 (0.1-0.6); MONO % 5.3 % (1.7-9.3); PLATELET COUNT 169 K/mm3 (130-400); RED BLOOD COUNT 4.89 M/mm3 (4.10-5.30); REDCELL DISTRIBUTION WIDTH-CV 11.7 % (11.5-14.5)
[2021-08-13 13:39] LABS: ALANINE AMINOTRANSFERASE 6 U/L (0-55); ALBUMIN 3.4 gm/dL (3.5-5.0); ALKALINE PHOSPHATASE 59 U/L (40-150); ANION GAP 7 mmol/L (7-16); AST,SGOT 17 U/L (5-34); BILIRUBIN,TOTAL 0.6 mg/dL (0.2-1.2); BLOOD UREA NITROGEN 17 mg/dL (10-20); CALCIUM 8.5 mg/dL (8.4-10.2); CARBON DIOXIDE 23 mmol/L (22-29); CHLORIDE 109 mmol/L (98-107); CREATININE, serum 0.72 mg/dL (0.57-1.11); GLUCOSE 76 mg/dL (70-99); POTASSIUM 4.2 mmol/L (3.5-4.5); SODIUM 139 mmol/L (136-145)
[2021-08-13 13:42] LABS: ALCOHOL(ethanol),MEDICAL < 10 mg/dL (0-10)
[2021-08-13 13:47] LABS: TROPONIN-I < 0.010 ng/mL (0.00-0.033)
[2021-08-13 14:47] LABS: COLLECTION METHOD CLEAN CATCH
[2021-08-13 15:34] LABS: TRICYCLIC ANTIDEPRESS URINE NEGATIVE
[2021-08-13 15:54] LABS: MUCOUS Present /lpf; PH 5 (5-8); SQUAMOUS EPITHELIAL 0-2 /hpf; URINE APPEARANCE Clear; URINE BACTERIA Rare /hpf; URINE BILIRUBIN Negative (NEGATIVE); URINE BLOOD Negative (NEGATIVE); URINE COLOR Yellow; URINE GLUCOSE Negative (NEGATIVE); URINE KETONE Negative (NEGATIVE); URINE LEUKOCYTE ESTERASE Negative (NEGATIVE); URINE NITRATE Negative (NEGATIVE); URINE PROTEIN(semi-quant) 1+ (NEGATIVE); URINE RBC 0-2 /hpf; URINE UROBILINOGEN Negative (NEGATIVE)
[2021-08-13 16:24] VITALS: BP 121/79; PULSE 53; TEMP 97.8
== END 2021-08-13 16:29 | disposition home or self-care (01) ==
LOC: COL.ER 10:33
PROVIDERS: Nurse Practitioner Family; Personal Emergency Response Attendant
DX: G89.29 Other chronic pain (principal); R51.9 Headache, unspecified; R53.81 Other malaise; R53.83 Other fatigue; R11.0 Nausea; R42 Dizziness and giddiness; F41.9 Anxiety disorder, unspecified; Z85.038 Personal history of other malignant neoplasm of large intestine; J44.9 Chronic obstructive pulmonary disease, unspecified; Z79.891 Long term (current) use of opiate analgesic; Z79.899 Other long term (current) drug therapy
CPT/HCPCS: J1885; J2405; J7030

== ENCOUNTER 2021-10-24 09:11 | Emergency (ER) | payer BC, MEDICARE ==
[~2021-10-24] VITALS: Ht 160 cm; Wt 45.0 kg
[2021-10-24 09:17] VITALS: TEMP 97.6
[2021-10-24 09:49] LABS: BASO % 0.6 % (0.0-2.0); EOS # 0.1 K/mm3 (0.0-0.7); GRAN # 4.4 K/mm3 (1.4-6.5); GRAN % 60.9 % (42.2-75.2); HEMATOCRIT 45.2 % (37.0-47.0); HEMOGLOBIN 15.3 g/dl (12.5-16.0); LYMPH # 2.3 K/mm3 (1.2-3.4); MEAN CELL VOLUME 96 fl (80.0-100.0); MEAN CORPUSCULAR HEMOGLOBIN 32 pg (27-31); MEAN CORPUSCULAR HGB CONC 34 g/dl (33.0-37.0); MEAN PLATELET VOLUME 10.4 fl (7.4-10.4); MONO # 0.4 K/mm3 (0.1-0.6); MONO % 5.4 % (1.7-9.3); PLATELET COUNT 179 K/mm3 (130-400); RED BLOOD COUNT 4.73 M/mm3 (4.10-5.30); REDCELL DISTRIBUTION WIDTH-CV 11.7 % (11.5-14.5)
[2021-10-24 10:07] LABS: BILIRUBIN,TOTAL 0.9 mg/dL (0.2-1.2); C-REACTIVE PROTEIN 0.09 mg/dL (0.00-0.50); CALCIUM 9.1 mg/dL (8.4-10.2); CREATININE, serum 0.78 mg/dL (0.57-1.11); TOTAL PROTEIN 6.8 gm/dL (6.2-8.1)
[2021-10-24 10:42] VITALS: BP 122/81; PULSE 69
== END 2021-10-24 10:49 | disposition home or self-care (01) ==
LOC: COL.ER 09:11
PROVIDERS: Family Medicine
DX: K52.9 Noninfective gastroenteritis and colitis, unspecified (principal); F17.210 Nicotine dependence, cigarettes, uncomplicated
CPT/HCPCS: J2405; J7120

== ENCOUNTER 2021-11-08 20:43 | Emergency (ER) | payer BC, MEDICARE ==
[~2021-11-08] VITALS: Ht 160 cm; Wt 45.5 kg
[2021-11-08 20:47] VITALS: PULSE 89; TEMP 97.9
== END 2021-11-08 21:16 | disposition home or self-care (01) ==
LOC: COL.ER 20:43
DX: H93.13 Tinnitus, bilateral (principal); B07.9 Viral wart, unspecified; F17.210 Nicotine dependence, cigarettes, uncomplicated

== ENCOUNTER 2021-11-13 10:33 | Emergency (ER) | payer BC, MEDICARE ==
[~2021-11-13] VITALS: Ht 160 cm; Wt 45.5 kg
[2021-11-13 10:44] VITALS: TEMP 97.5
[2021-11-13 11:48] LABS: BASO % 0.5 % (0.0-2.0); EOS # 0.1 K/mm3 (0.0-0.7); EOS % 1.6 % (0.0-4.0); GRAN # 3.9 K/mm3 (1.4-6.5); GRAN % 60.1 % (42.2-75.2); HEMATOCRIT 46.1 % (37.0-47.0); HEMOGLOBIN 15.5 g/dl (12.5-16.0); LYMPH # 2.1 K/mm3 (1.2-3.4); LYMPH % 32.8 % (20.0-51.0); MEAN CELL VOLUME 97 fl (80.0-100.0); MEAN CORPUSCULAR HEMOGLOBIN 33 pg (27-31); MEAN CORPUSCULAR HGB CONC 34 g/dl (33.0-37.0); MEAN PLATELET VOLUME 10.8 fl (7.4-10.4); MONO # 0.3 K/mm3 (0.1-0.6); MONO % 4.7 % (1.7-9.3); PLATELET COUNT 176 K/mm3 (130-400); RED BLOOD COUNT 4.76 M/mm3 (4.10-5.30); REDCELL DISTRIBUTION WIDTH-CV 11.5 % (11.5-14.5)
[2021-11-13 12:09] LABS: ALBUMIN 3.8 gm/dL (3.5-5.0); BILIRUBIN,TOTAL 0.6 mg/dL (0.2-1.2); CALCIUM 8.6 mg/dL (8.4-10.2); CREATININE, serum 0.92 mg/dL (0.57-1.11); POTASSIUM 3.8 mmol/L (3.5-4.5); TOTAL PROTEIN 6.5 gm/dL (6.2-8.1)
[2021-11-13] MEDS ORDERED: PHENERGAN 25 TA25 MG PO (12:40)
[2021-11-13 12:52] VITALS: BP 108/69; PULSE 71
== END 2021-11-13 12:55 | disposition home or self-care (01) ==
LOC: COL.ER 10:33
PROVIDERS: Nurse Practitioner
DX: R11.2 Nausea with vomiting, unspecified (principal); R73.9 Hyperglycemia, unspecified; F17.210 Nicotine dependence, cigarettes, uncomplicated
CPT/HCPCS: J2550; J7030

== ENCOUNTER 2021-12-08 13:53 | Emergency (ER) | payer BC, MEDICARE ==
[~2021-12-08] VITALS: Ht 157.5 cm; Wt 50.0 kg
[2021-12-08 14:39] VITALS: TEMP 98.2
[2021-12-08 15:57] VITALS: BP 144/89; PULSE 67
== END 2021-12-08 15:56 | disposition home or self-care (01) ==
LOC: COL.ER 13:53
DX: M79.642 Pain in left hand (principal); M79.641 Pain in right hand; F17.210 Nicotine dependence, cigarettes, uncomplicated

== ENCOUNTER 2021-12-15 11:43 | Emergency (ER) | payer BC, MEDICARE ==
[~2021-12-15] VITALS: Ht 157.5 cm; Wt 49.1 kg
[2021-12-15 12:08] VITALS: TEMP 98.4
[2021-12-15 14:05] LABS: BASO # 0.1 K/mm3 (0.0-0.2); BASO % 0.7 % (0.0-2.0); EOS # 0.1 K/mm3 (0.0-0.7); EOS % 1.7 % (0.0-4.0); GRAN # 3.9 K/mm3 (1.4-6.5); GRAN % 54.3 % (42.2-75.2); HEMATOCRIT 46.9 % (37.0-47.0); HEMOGLOBIN 15.5 g/dl (12.5-16.0); LYMPH # 2.8 K/mm3 (1.2-3.4); LYMPH % 38.8 % (20.0-51.0); MEAN CELL VOLUME 98 fl (80.0-100.0); MEAN CORPUSCULAR HEMOGLOBIN 32 pg (27-31); MEAN CORPUSCULAR HGB CONC 33 g/dl (33.0-37.0); MEAN PLATELET VOLUME 10.6 fl (7.4-10.4); MONO # 0.3 K/mm3 (0.1-0.6); MONO % 4.4 % (1.7-9.3); PLATELET COUNT 180 K/mm3 (130-400); RED BLOOD COUNT 4.79 M/mm3 (4.10-5.30); REDCELL DISTRIBUTION WIDTH-CV 11.8 % (11.5-14.5)
[2021-12-15 14:25] LABS: ALBUMIN 3.8 gm/dL (3.5-5.0); BILIRUBIN,TOTAL 0.6 mg/dL (0.2-1.2); CALCIUM 8.7 mg/dL (8.4-10.2); CREATININE, serum 0.89 mg/dL (0.57-1.11); POTASSIUM 3.8 mmol/L (3.5-4.5); TOTAL PROTEIN 6.5 gm/dL (6.2-8.1)
[2021-12-15 15:31] LABS: COLLECTION METHOD CLEAN CATCH
[2021-12-15] MEDS ORDERED: ZOFRAN ODT4 MG PO (15:32)
[2021-12-15 15:39] LABS: PH 5 (5-8); SQUAMOUS EPITHELIAL 0-2 /hpf (0-10); URINE APPEARANCE Hazy (CLEAR/HAZY); URINE BACTERIA None Seen /hpf (NONE SEEN); URINE BILIRUBIN Negative (NEGATIVE); URINE BLOOD Negative (NEGATIVE); URINE COLOR Yellow (YELLOW); URINE GLUCOSE Negative (NEGATIVE); URINE KETONE Negative (NEGATIVE); URINE LEUKOCYTE ESTERASE Negative (NEGATIVE); URINE NITRATE Negative (NEGATIVE); URINE PROTEIN(semi-quant) Negative (NEGATIVE); URINE RBC 0-2 /hpf (0-2); URINE UROBILINOGEN Negative (NEGATIVE)
[2021-12-15 15:45] VITALS: BP 108/79; PULSE 63
== END 2021-12-15 15:45 | disposition home or self-care (01) ==
LOC: COL.ER 11:43
PROVIDERS: Physician Assistant
DX: R19.7 Diarrhea, unspecified (principal); R10.84 Generalized abdominal pain; F17.210 Nicotine dependence, cigarettes, uncomplicated; Z93.3 Colostomy status; Z85.038 Personal history of other malignant neoplasm of large intestine
CPT/HCPCS: J2550; J7030

== ENCOUNTER 2021-12-25 09:06 | Emergency (ER) | payer BC, MEDICARE ==
[~2021-12-25] VITALS: Ht 160 cm; Wt 50.0 kg
[2021-12-25 09:12] VITALS: TEMP 97.7
[2021-12-25] MEDS ORDERED: VENTOLIN0.09 MG IH (09:20)
[2021-12-25] MEDS ORDERED: 00186-0372-20 IH (09:20)
[2021-12-25 09:33] LABS: BASO % 0.6 % (0.0-2.0); EOS # 0.1 K/mm3 (0.0-0.7); EOS % 1.9 % (0.0-4.0); GRAN # 3.8 K/mm3 (1.4-6.5); GRAN % 55.7 % (42.2-75.2); HEMATOCRIT 46.9 % (37.0-47.0); HEMOGLOBIN 16.2 g/dl (12.5-16.0); LYMPH # 2.4 K/mm3 (1.2-3.4); LYMPH % 35.6 % (20.0-51.0); MEAN CELL VOLUME 94 fl (80.0-100.0); MEAN CORPUSCULAR HEMOGLOBIN 33 pg (27-31); MEAN CORPUSCULAR HGB CONC 35 g/dl (33.0-37.0); MEAN PLATELET VOLUME 10.3 fl (7.4-10.4); MONO # 0.4 K/mm3 (0.1-0.6); MONO % 6.1 % (1.7-9.3); PLATELET COUNT 172 K/mm3 (130-400); RED BLOOD COUNT 4.99 M/mm3 (4.10-5.30); REDCELL DISTRIBUTION WIDTH-CV 11.6 % (11.5-14.5)
[2021-12-25 09:49] LABS: PROTHROMBIN TIME 11.1 SECONDS (9.7-12.8)
[2021-12-25 09:52] LABS: ALBUMIN 4.1 gm/dL (3.5-5.0); CALCIUM 9.4 mg/dL (8.4-10.2); CREATININE, serum 0.78 mg/dL (0.57-1.11); TOTAL PROTEIN 6.9 gm/dL (6.2-8.1)
[2021-12-25 09:57] LABS: TROPONIN-I 0.013 ng/mL (0.00-0.033)
[2021-12-25 12:30] VITALS: BP 115/76; PULSE 70
== END 2021-12-25 12:36 | disposition home or self-care (01) ==
LOC: COL.ER 09:06
PROVIDERS: Family Medicine
DX: R05.9 Cough, unspecified (principal)
CPT/HCPCS: J2405; J7030; J7120

== ENCOUNTER 2022-01-08 10:26 | Emergency (ER) | payer BC, MEDICARE ==
[~2022-01-08] VITALS: Ht 157.5 cm; Wt 49.1 kg
[~2022-01-08 10:26] MED LIST changes: +00186-0372-20 IH
[2022-01-08 10:41] VITALS: TEMP 98.1
[2022-01-08 11:14] LABS: HEMATOCRIT 42.2 % (37.0-47.0); HEMOGLOBIN 14.4 g/dl (12.5-16.0); MEAN CELL VOLUME 95 fl (80.0-100.0); MEAN CORPUSCULAR HEMOGLOBIN 32 pg (27-31); MEAN CORPUSCULAR HGB CONC 34 g/dl (33.0-37.0); PLATELET COUNT 249 K/mm3 (130-400); RED BLOOD COUNT 4.46 M/mm3 (4.10-5.30); REDCELL DISTRIBUTION WIDTH-CV 11.9 % (11.5-14.5)
[2022-01-08 11:28] LABS: BAND 2 % (0-10); EOSINOPHIL 3 % (0-4); LYMPHOCYTE 30 % (20.0-51.0); NEUTROPHILS 60 % (42.0-75.2)
[2022-01-08 11:29] LABS: PLATELET ESTIMATE NORMAL (NORMAL)
[2022-01-08 11:34] LABS: ALBUMIN 3.5 gm/dL (3.5-5.0); BILIRUBIN,TOTAL 0.2 mg/dL (0.2-1.2); C-REACTIVE PROTEIN 0.47 mg/dL (0.00-0.50); CALCIUM 8.9 mg/dL (8.4-10.2); CREATININE, serum 0.66 mg/dL (0.57-1.11); POTASSIUM 4.1 mmol/L (3.5-4.5); TOTAL PROTEIN 6.5 gm/dL (6.2-8.1)
[2022-01-08 12:51] LABS: COLLECTION METHOD CLEAN CATCH
[2022-01-08 12:57] LABS: MUCOUS Present (NOT PRESENT); PH 5 (5-8); SQUAMOUS EPITHELIAL 0-2 /hpf (0-10); URINE APPEARANCE Clear (CLEAR/HAZY); URINE BACTERIA None Seen /hpf (NONE SEEN); URINE BILIRUBIN Negative (NEGATIVE); URINE BLOOD Negative (NEGATIVE); URINE COLOR Yellow (YELLOW); URINE GLUCOSE Negative (NEGATIVE); URINE KETONE Negative (NEGATIVE); URINE LEUKOCYTE ESTERASE Negative (NEGATIVE); URINE NITRATE Negative (NEGATIVE); URINE PROTEIN(semi-quant) Negative (NEGATIVE); URINE RBC 0-2 /hpf (0-2); URINE UROBILINOGEN Negative (NEGATIVE)
[2022-01-08] MEDS ORDERED: PROTONIX 40MG T40 MG PO (13:30)
[2022-01-08 13:35] VITALS: BP 123/84; PULSE 64
== END 2022-01-08 13:35 | disposition home or self-care (01) ==
LOC: COL.ER 10:26
PROVIDERS: Family Medicine
DX: R10.9 Unspecified abdominal pain (principal); Z98.51 Tubal ligation status; Z90.711 Acquired absence of uterus with remaining cervical stump; Z90.5 Acquired absence of kidney; Z90.49 Acquired absence of other specified parts of digestive tract
CPT/HCPCS: J1790; J2405; J7120; Q9967

== ENCOUNTER 2022-02-19 08:08 | Emergency (ER) | payer BC, MEDICARE ==
[~2022-02-19] VITALS: Ht 157.5 cm; Wt 49.1 kg
[~2022-02-19 08:08] MED LIST changes: +PROTONIX 40MG T40 MG PO
[2022-02-19 08:18] VITALS: TEMP 97.8
[2022-02-19 08:59] LABS: BASO % 0.6 % (0.0-2.0); EOS # 0.2 K/mm3 (0.0-0.7); EOS % 3.6 % (0.0-4.0); GRAN % 42.2 % (42.2-75.2); HEMATOCRIT 44.8 % (37.0-47.0); LYMPH % 43.3 % (20.0-51.0); MEAN CELL VOLUME 97 fl (80.0-100.0); MEAN CORPUSCULAR HEMOGLOBIN 32 pg (27-31); MEAN CORPUSCULAR HGB CONC 34 g/dl (33.0-37.0); MEAN PLATELET VOLUME 10.4 fl (7.4-10.4); MONO # 0.5 K/mm3 (0.1-0.6); MONO % 10.1 % (1.7-9.3); PLATELET COUNT 167 K/mm3 (130-400); RED BLOOD COUNT 4.63 M/mm3 (4.10-5.30); REDCELL DISTRIBUTION WIDTH-CV 12.3 % (11.5-14.5)
[2022-02-19 09:14] LABS: ALBUMIN 3.8 gm/dL (3.4-4.8); BILIRUBIN,TOTAL 0.8 mg/dL (0.2-1.2); CREATININE, serum 0.79 mg/dL (0.57-1.11); POTASSIUM 4.2 mmol/L (3.5-4.5); TOTAL PROTEIN 6.5 gm/dL (6.2-8.1)
[2022-02-19 10:00] VITALS: BP 107/90; PULSE 64
== END 2022-02-19 10:27 | disposition home or self-care (01) ==
LOC: COL.ER 08:08
PROVIDERS: Student in an Organized Health Care Education/Training Program
DX: B34.9 Viral infection, unspecified (principal); F17.210 Nicotine dependence, cigarettes, uncomplicated

== ENCOUNTER → 2022-03-03 | Outpatient (CLI) | payer BC, MEDICARE | LOC: COL.RAD 14:33 | DX: R05.9 Cough, unspecified (principal) ==

== ENCOUNTER 2022-04-21 08:36 | Day surgery (SDC) | payer MEDICARE ==
[~2022-04-21] VITALS: Ht 157.5 cm; Wt 42.7 kg
[2022-04-21] MEDS ORDERED: 00186-0372-20 IH (09:21)
[2022-04-21] MEDS ORDERED: ATIVAN 0.50.5 MG/TAB PO (09:22)
[2022-04-21] MEDS ORDERED: PROTONIX 40MG T40 MG PO (09:22)
[2022-04-21 09:27] VITALS: BP 124/79; PULSE 65; TEMP 97.4
[2022-04-21 10:45] VITALS: BP 118/86; PULSE 68; TEMP 97.4
--- NOTE | 2022-04-21 10:45 | NUR ---
The patient arrived back to [facility] [address] from the endoscopy suite. The patient ambulated from the cart to the recliner in her room with the assistance of one nurse and appeared to tolerate the activity well. Post procedure vital signs were started at this time. The patient requests to try some grape juice and a muffin. Call light is within reach. Warm blanket provided. Denies any further needs.
[2022-04-21 11:00] VITALS: BP 92/76; PULSE 71
--- NOTE | 2022-04-21 11:00 | NUR ---
The patient appears to be tolerating the food and drink well. Her daughter, Gale, was called to come pick her up. Call light remains within reach. Denies any further needs.
[2022-04-21 11:15] VITALS: BP 116/72; PULSE 76
--- NOTE | 2022-04-21 11:15 | NUR ---
The patient has spoke with Dr. Lucas about the findings of the procedure. Discharge instructions were reviewed with the patient at this time. She verbalized understanding and has no questions for the nurse at this time. The patient's IV to her right hand was removed and a pressure dressing was applied to the site. The nurse intstructed the patient to get dressed and notify the staff when she is ready to be escorted out.
--- NOTE | 2022-04-21 11:25 | NUR ---
The patient was escorted out via wheelchair to a private vehicle by CALOS Mccullough. The patient's belongings and discharge paperwork were sent with her. The patient's daughter, Gale, is present to drive her home.
== END 2022-04-21 11:25 | disposition home or self-care (01) ==
LOC: SDCO 08:36
DX: T18.5XXA Foreign body in anus and rectum, initial encounter (principal); K63.89 Other specified diseases of intestine; K56.609 Unspecified intestinal obstruction, unspecified as to partial versus complete obstruction; F17.210 Nicotine dependence, cigarettes, uncomplicated
CPT/HCPCS: J2704; J7120

== ENCOUNTER 2022-04-27 17:29 | Emergency (ER) | payer SELFPAY ==
[~2022-04-27] VITALS: Ht 157.5 cm; Wt 49.1 kg
[2022-04-27 18:07] VITALS: TEMP 98.5
[2022-04-27] MEDS ORDERED: NAPROSYN500 MG PO (19:58)
[2022-04-27] MEDS ORDERED: FLEXERIL 1010 MG/TAB PO (19:58)
[2022-04-27 20:07] VITALS: BP 146/78; PULSE 76
== END 2022-04-27 20:07 | disposition home or self-care (01) ==
LOC: COL.ER 17:29
DX: M54.50 Low back pain, unspecified (principal); F17.210 Nicotine dependence, cigarettes, uncomplicated; Z28.310 Unvaccinated for COVID-19; V49.40XA Driver injured in collision with unspecified motor vehicles in traffic accident, initial encounter
CPT/HCPCS: J1885

== ENCOUNTER 2022-05-08 18:43 | Emergency (ER) | payer SELFPAY ==
[~2022-05-08] VITALS: Ht 157.5 cm; Wt 49.1 kg
[~2022-05-08 18:43] MED LIST changes: +NAPROSYN500 MG PO
[2022-05-08 18:52] VITALS: BP 119/80; PULSE 98
== END 2022-05-08 19:34 | disposition home or self-care (01) ==
LOC: COL.ER 18:43
DX: M54.50 Low back pain, unspecified (principal); G89.29 Other chronic pain; F17.200 Nicotine dependence, unspecified, uncomplicated; Z79.891 Long term (current) use of opiate analgesic; V89.2XXA Person injured in unspecified motor-vehicle accident, traffic, initial encounter; Y92.410 Unspecified street and highway as the place of occurrence of the external cause

== ENCOUNTER 2022-11-11 17:29 | Emergency (ER) | payer MEDICARE, OTHER ==
[~2022-11-11] VITALS: Ht 157.5 cm; Wt 47.7 kg
[2022-11-11 17:50] VITALS: TEMP 98
[2022-11-11 19:07] VITALS: BP 131/83; PULSE 65
== END 2022-11-11 19:18 | disposition home or self-care (01) ==
LOC: COL.ER 17:29
DX: M54.50 Low back pain, unspecified (principal); G89.29 Other chronic pain; F17.200 Nicotine dependence, unspecified, uncomplicated; Z79.1 Long term (current) use of non-steroidal anti-inflammatories (NSAID); Z28.310 Unvaccinated for COVID-19
CPT/HCPCS: J1170

== ENCOUNTER 2022-12-08 13:59 | Emergency (ER) | payer MEDICARE, OTHER ==
[~2022-12-08] VITALS: Ht 157.5 cm; Wt 47.7 kg
[2022-12-08 15:28] LABS: BASO % 0.6 % (0.0-2.0); EOS # 0.1 K/mm3 (0.0-0.7); EOS % 1.7 % (0.0-4.0); GRAN # 3.9 K/mm3 (1.4-6.5); GRAN % 60.5 % (42.2-75.2); HEMATOCRIT 41.9 % (37.0-47.0); HEMOGLOBIN 14.4 g/dl (12.5-16.0); LYMPH % 31.3 % (20.0-51.0); MEAN CELL VOLUME 95 fl (80.0-100.0); MEAN CORPUSCULAR HEMOGLOBIN 33 pg (27-31); MEAN CORPUSCULAR HGB CONC 34 g/dl (33.0-37.0); MEAN PLATELET VOLUME 10.2 fl (7.4-10.4); MONO # 0.4 K/mm3 (0.1-0.6); MONO % 5.7 % (1.7-9.3); PLATELET COUNT 167 K/mm3 (130-400); RED BLOOD COUNT 4.42 M/mm3 (4.10-5.30); REDCELL DISTRIBUTION WIDTH-CV 11.8 % (11.5-14.5)
[2022-12-08 15:46] LABS: ALBUMIN 3.5 gm/dL (3.4-4.8); BILIRUBIN,TOTAL 0.6 mg/dL (0.2-1.2); CALCIUM 8.6 mg/dL (8.4-10.2); CREATININE, serum 0.74 mg/dL (0.57-1.11); POTASSIUM 4.1 mmol/L (3.5-4.5)
[2022-12-08 16:31] LABS: COLLECTION METHOD CLEAN CATCH
[2022-12-08 16:48] LABS: PH 5.5 (5.0-8.5); URINE APPEARANCE Clear (CLEAR/HAZY); URINE BLOOD Negative (NEGATIVE); URINE COLOR Yellow (YELLOW); URINE GLUCOSE Negative (NEGATIVE); URINE KETONE Negative (NEGATIVE); URINE NITRATE Negative (NEGATIVE); URINE PROTEIN(semi-quant) Negative (NEGATIVE); URINE UROBILINOGEN 0.2 E.U/dL (0.2-1.0)
[2022-12-08 16:51] LABS: MUCOUS Present (NOT PRESENT); SQUAMOUS EPITHELIAL 0-2 /hpf (0-10); URINE BACTERIA Rare /hpf (NONE SEEN); URINE RBC 0-2 /hpf (0-2)
[2022-12-08 16:55] LABS: TRICYCLIC ANTIDEPRESS URINE NEGATIVE
[2022-12-08 17:50] VITALS: BP 131/84; PULSE 59; TEMP 96.8
== END 2022-12-08 18:00 | disposition home or self-care (01) ==
LOC: COL.ER 13:59
PROVIDERS: Physician Assistant
DX: G47.10 Hypersomnia, unspecified (principal); R53.1 Weakness; F17.200 Nicotine dependence, unspecified, uncomplicated
CPT/HCPCS: J7030

== ENCOUNTER 2023-07-30 14:41 | Emergency (ER) | payer MEDICARE, OTHER ==
[~2023-07-30] VITALS: Ht 157.5 cm; Wt 47.7 kg
[~2023-07-30 14:41] MED LIST changes: +AMBIEN 5MG TABLE5 MG PO; +LIORESAL20 MG PO; +LIPITOR20 MG PO; +MS CONTIN 115 MG/TAB PO
[2023-07-30 14:57] VITALS: TEMP 97.7
[2023-07-30 19:04] LABS: BASO # 0.1 K/mm3 (0.0-0.2); BASO % 0.7 % (0.0-2.0); EOS # 0.2 K/mm3 (0.0-0.7); EOS % 2.3 % (0.0-4.0); GRAN # 4.6 K/mm3 (1.4-6.5); GRAN % 53.5 % (42.2-75.2); HEMATOCRIT 44.7 % (37.0-47.0); HEMOGLOBIN 15.5 g/dl (12.5-16.0); LYMPH # 3.3 K/mm3 (1.2-3.4); LYMPH % 37.8 % (20.0-51.0); MEAN CELL VOLUME 96 fl (80.0-100.0); MEAN CORPUSCULAR HEMOGLOBIN 33 pg (27-31); MEAN CORPUSCULAR HGB CONC 35 g/dl (33.0-37.0); MONO # 0.5 K/mm3 (0.1-0.6); MONO % 5.6 % (1.7-9.3); PLATELET COUNT 169 K/mm3 (130-400); RED BLOOD COUNT 4.66 M/mm3 (4.10-5.30); REDCELL DISTRIBUTION WIDTH-CV 11.8 % (11.5-14.5)
[2023-07-30 19:19] LABS: ALBUMIN 4.1 gm/dL (3.4-4.8); BILIRUBIN,TOTAL 0.3 mg/dL (0.2-1.2); CREATININE, serum 0.79 mg/dL (0.57-1.11); POTASSIUM 4.5 mmol/L (3.5-4.5); TOTAL PROTEIN 6.9 gm/dL (6.2-8.1)
[2023-07-30 19:56] LABS: COLLECTION METHOD CLEAN CATCH
[2023-07-30 20:11] LABS: PH 5.5 (5.0-8.5); URINE APPEARANCE Clear (CLEAR/HAZY); URINE BLOOD Negative (NEGATIVE); URINE COLOR Yellow (YELLOW); URINE GLUCOSE Negative (NEGATIVE); URINE KETONE Negative (NEGATIVE); URINE NITRATE Negative (NEGATIVE); URINE PROTEIN(semi-quant) Negative (NEGATIVE); URINE UROBILINOGEN 0.2 E.U/dL (0.2-1.0)
[2023-07-30 20:14] LABS: MUCOUS Present (NOT PRESENT); URINE BACTERIA Rare /hpf (NONE SEEN)
[2023-07-30 20:15] LABS: SQUAMOUS EPITHELIAL 0-2 /hpf (0-10)
[2023-07-30 20:23] VITALS: BP 129/93; PULSE 62
== END 2023-07-30 20:23 | disposition home or self-care (01) ==
LOC: COL.ER 14:41
PROVIDERS: Nurse Practitioner
DX: R53.1 Weakness (principal)
CPT/HCPCS: J7030

== ENCOUNTER → 2023-10-28 | Outpatient (CLI) | payer MEDICARE ==
[~2023-10-28] MED LIST changes: +Iohexol 300 - 100 ML VIAL IV ONE; +NS 100 ML IV SCH
== END ==
LOC: COL.RAD 11:51
DX: J43.9 Emphysema, unspecified (principal); K62.89 Other specified diseases of anus and rectum; K56.609 Unspecified intestinal obstruction, unspecified as to partial versus complete obstruction; K94.13 Enterostomy malfunction; R11.0 Nausea; Z90.5 Acquired absence of kidney; Z90.710 Acquired absence of both cervix and uterus; Z98.890 Other specified postprocedural states; Z80.0 Family history of malignant neoplasm of digestive organs
CPT/HCPCS: Q9967

== ENCOUNTER 2023-12-27 07:56 | Day surgery (SDC) | payer MEDICARE, OTHER ==
[~2023-12-27] VITALS: Ht 157.5 cm; Wt 47.2 kg
[~2023-12-27 07:56] MED LIST changes: -Iohexol 300 - 100 ML VIAL IV ONE; +LR 1,000 ML IV SCH; -NS 100 ML IV SCH; +Ondansetron 4 MG/2 ML VIAL IV PRN
[2023-12-27] MEDS ORDERED: Lidocaine PF 2% (20 MG/ML) 5 ML VIAL ONE (08:38)
[2023-12-27] MEDS ORDERED: PRILOTC PO (08:42)
[2023-12-27] MEDS ORDERED: ZOLPIDEM PO (08:42)
[2023-12-27 08:54] VITALS: BP 134/71; PULSE 66; TEMP 96.8
[2023-12-27 09:45] VITALS: BP 142/81; PULSE 58
[2023-12-27 10:00] VITALS: BP 131/82; PULSE 57
[2023-12-27 10:15] VITALS: BP 122/71; PULSE 58
--- NOTE | 2023-12-27 10:36 | NUR ---
0945 PATIENT RETURNS TO [facility] VIA CART. PT AWAKE AND ALERT. RESPIRATIONS UNLABORED. AMBULATED TO RECLINER CHAIR WITH 2:1 SBA. PT DENIES NAUSEA OR ABDOMINAL PAIN. HOOKED UP TO MONITOR AND VS OBTAINED. CALL LIGHT AT SIDE . 0950 PATIENT TOLERATING APPLE JUICE AND CRACKERS WITHOUT NAUSEA OR DIFFICULTY SWALLOWING (EGD ONLY). 1010 IN ROOM SPEAKING WITH PATIENT. 1015 D/C INSTRUCTIONS REVIEWED WITH PATIENT. PT VERBALIZED UNDERSTANDING AND A COPY OF INSTRUCTIONS PROVIDED IN D/C FOLDER. 1025 PATIENT DRESSES SELF. 1030 PATIENT DISCHARGED FROM UNIT VIA W/C TO A PERSONAL VEHICLE. PT LEFT HOSPITAL IN STABLE CONDITION.
== END 2023-12-27 10:30 | disposition home or self-care (01) ==
LOC: SDCO 07:56
DX: K29.50 Unspecified chronic gastritis without bleeding (principal); T18.5XXA Foreign body in anus and rectum, initial encounter; K31.A0 Gastric intestinal metaplasia, unspecified; K21.9 Gastro-esophageal reflux disease without esophagitis; K62.89 Other specified diseases of anus and rectum; K62.4 Stenosis of anus and rectum; K64.4 Residual hemorrhoidal skin tags; K94.13 Enterostomy malfunction; K63.89 Other specified diseases of intestine; K56.609 Unspecified intestinal obstruction, unspecified as to partial versus complete obstruction; F17.210 Nicotine dependence, cigarettes, uncomplicated; Z85.038 Personal history of other malignant neoplasm of large intestine
CPT/HCPCS: J2704; J7120

== ENCOUNTER 2024-07-30 22:51 | Emergency (ER) | payer MEDICARE ==
[~2024-07-30] VITALS: Ht 157.5 cm; Wt 45.0 kg
[~2024-07-30 22:51] MED LIST changes: -LR 1,000 ML IV SCH; -Ondansetron 4 MG/2 ML VIAL IV PRN; +PRILOTC PO; +ZOLPIDEM PO
[2024-07-30 22:56] VITALS: BP 153/79; PULSE 79; TEMP 97.9
== END 2024-07-30 23:34 | disposition left against medical advice (07) ==
LOC: COL.ER 22:51
DX: R05.9 Cough, unspecified (principal); R09.81 Nasal congestion; R07.9 Chest pain, unspecified; J02.9 Acute pharyngitis, unspecified